=== PATIENT | female | born 1960 | race Caucasian/White ===

== ENCOUNTER → 2016-12-11 | Outpatient (CLI) | payer OTHER ==
[~2016-12-11] MED LIST: COUM2.5T17 PO; MORP15TASA PO; OMEP20CA3 PO; PERC5TAB12 PO; VENL75CA2 PO; [UNRECOGNIZED DRUG - OTHER] PO
[2016-12-11 11:34] LABS: MEAN CORPUSCULAR HEMOGLOBIN 28.3 pg (27.0-33.0); MEAN CORPUSCULAR HGB CONC 32.1 g/dl (32.0-36.5); MEAN CORPUSCULAR VOLUME 88.2 fl (80.0-96.0); PLATELET COUNT, AUTOMATED 400 10^3/uL (150-450); RED CELL DISTRIBUTION WIDTH 13.8 % (11.5-14.5); WHITE BLOOD COUNT 7.8 10^3/uL (4.0-10.0)
[2016-12-11 11:51] LABS: INR 0.77
[2016-12-11 11:57] LABS: ALBUMIN/GLOBULIN RATIO 1.14 (1.00-1.93); ALKALINE PHOSPHATASE 93 U/L (45-117); ALT/SGPT 30 U/L (12-78); ANION GAP 3 MEQ/L (8-16); AST/SGOT 16 U/L (15-37); BILIRUBIN,TOTAL 0.3 MG/DL (0.2-1.0); BLOOD UREA NITROGEN 12 MG/DL (7-18); CALCIUM LEVEL 9.5 MG/DL (8.5-10.1); CARBON DIOXIDE LEVEL 32 MEQ/L (21-32); CHLORIDE LEVEL 107 MEQ/L (98-107); CREATININE FOR GFR 0.83 MG/DL (0.55-1.02); GLOMERULAR FILTRATION RATE > 60.0 (>51); GLUCOSE, FASTING 80 MG/DL (70-105); POTASSIUM SERUM 4.1 MEQ/L (3.5-5.1); SODIUM LEVEL 142 MEQ/L (136-145); TOTAL PROTEIN 7.5 GM/DL (6.4-8.2)
[2016-12-11 13:02] LABS: ERYTHROCYTE SEDIMENTATION RATE 6 mm/hr (0-30)
--- NOTE | 2016-12-11 16:44 | REP ---
PA and lateral chest: Comparison is 10/25/2011. The lung sen are clear. The cardiac size is normal The jacquie, mediastinum, and bony thorax are unremarkable. Impression: Negative PA and lateral chest. There is no interval change. The Signed by Mike Dasilva MD 12/11/2016 12:12 P
--- NOTE | 2016-12-12 20:49 | ECGEPIP ---
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
== END ==
LOC: M ADMPAT 09:55
PROVIDERS: ATTEND Orthopaedic Surgery
DX: Z01.818 Encounter for other preprocedural examination (principal)

== ENCOUNTER → 2017-01-09 | Outpatient (CLI) | payer OTHER ==
[2017-01-09 16:11] LABS: INR 1.69
== END ==
LOC: M LABDRAW1 11:23
PROVIDERS: ATTEND Orthopaedic Surgery
DX: Z79.01 Long term (current) use of anticoagulants (principal)

== ENCOUNTER → 2017-01-14 | Outpatient (REF) | payer OTHER ==
[2017-01-14 15:47] LABS: INR 1.58
== END ==
LOC: M SHH 14:42
PROVIDERS: ATTEND Nurse Practitioner Family
DX: Z79.01 Long term (current) use of anticoagulants (principal)

== ENCOUNTER → 2017-01-25 | Outpatient (REF) | payer OTHER | LOC: M SFHCWAGY 14:50 | PROVIDERS: ATTEND Family Medicine | DX: Z12.4 Encounter for screening for malignant neoplasm of cervix (principal); N95.2 Postmenopausal atrophic vaginitis ==

== ENCOUNTER → 2017-01-25 | Outpatient (CLI) | payer OTHER ==
--- NOTE | 2017-01-25 16:06 | REPMRS ---
Patient History The patient states she has not had a clinical breast exam in over a year. Patient is postmenopausal and has history of other cancer at age 46. No known family history of cancer. Digital Woman Screen Mammo: January 25, 2017 - Exam #: [id number] Bilateral CC and MLO view(s) were taken. Technologist: Nikki Bass Technologist Prior study comparison: December 02, 2013, digital woman screen mammo performed at [facility] to [facility]. June 03, 2012, digital woman screen mammo performed at [facility]. December 27, 2010, bilateral bilat screen digital mammo performed at [facility] to [facility]. FINDINGS: There are scattered fibroglandular densities. There has been no change in the appearance of the mammogram from the prior studies. There is a mild amount of residual fibroglandular tissue which is fairly symmetric. There is no interval development of dominant mass, architectural distortion, or clustered microcalcification suggestive of malignancy. Scattered lymph nodes are seen in the axillae. No significant changes when compared with prior studies. ASSESSMENT: BI-RADS/ACR category 2 mammogram. Benign finding(s). Recommendation Routine screening mammogram in 1 year (for women over age 40). This mammogram was interpreted with the aid of an FDA-approved computer-aided dectection system. A. Negative x-ray reports should not delay biopsy if a dominant or clinically suspicious mass is present. B. Four to eight percent of cancers are not identified by mammography. C. Adenosis and dense breast may obscure an underlying neoplasm. Electronically Signed By: Emanuel Nath MD 01/25/17 0155
== END ==
LOC: M WHC 14:22
PROVIDERS: ATTEND Family Medicine
DX: Z12.31 Encounter for screening mammogram for malignant neoplasm of breast (principal); Z85.9 Personal history of malignant neoplasm, unspecified

== ENCOUNTER 2017-03-11 08:25 | Emergency (ER) | payer OTHER ==
[2017-03-11] MEDS ORDERED: BUPIVACAINE HCL 0.5% 10 ML VIAL As Ordered (10:03)
== END 2017-03-11 10:42 | disposition home or self-care (01) ==
LOC: M ED 08:25
DX: M50.10 Cervical disc disorder with radiculopathy, unspecified cervical region (principal); M79.622 Pain in left upper arm; R20.2 Paresthesia of skin; Z96.652 Presence of left artificial knee joint; Z87.891 Personal history of nicotine dependence; Z85.21 Personal history of malignant neoplasm of larynx
CPT/HCPCS: 99283

== ENCOUNTER → 2017-07-02 | Outpatient (CLI) | payer OTHER ==
[2017-07-02 17:23] LABS: ALBUMIN 3.8 GM/DL (3.2-5.2); ALBUMIN/GLOBULIN RATIO 1.15 (1.00-1.93); ALKALINE PHOSPHATASE 106 U/L (45-117); ALT/SGPT 31 U/L (12-78); ANION GAP 7 MEQ/L (8-16); AST/SGOT 19 U/L (7-37); BILIRUBIN,TOTAL 0.3 MG/DL (0.2-1.0); BLOOD UREA NITROGEN 17 MG/DL (7-18); CALCIUM LEVEL 8.9 MG/DL (8.5-10.1); CARBON DIOXIDE LEVEL 25 MEQ/L (21-32); CHLORIDE LEVEL 109 MEQ/L (98-107); CHOLESTEROL LEVEL 247 MG/DL (<200); GLOMERULAR FILTRATION RATE > 60.0 (>51); GLUCOSE, FASTING 103 MG/DL (70-100); HDL CHOLESTEROL 63 MG/DL (>40); LDL CHOLESTEROL 145.8 MG/DL (<100); NON-HDL-C 184 MG/DL; POTASSIUM SERUM 4.5 MEQ/L (3.5-5.1); SODIUM LEVEL 141 MEQ/L (136-145); TOTAL PROTEIN 7.1 GM/DL (6.4-8.2); TRIGLYCERIDES LEVEL 191 MG/DL (<150)
== END ==
LOC: M LRY 13:54
DX: E78.5 Hyperlipidemia, unspecified (principal)
CPT/HCPCS: 80053

== ENCOUNTER → 2017-10-04 | Outpatient (CLI) | payer OTHER | LOC: M RAD 07:25 | DX: E04.2 Nontoxic multinodular goiter (principal) | CPT/HCPCS: 76536 ==

== ENCOUNTER 2018-03-20 10:05 | Day surgery (SDC) | payer OTHER ==
[~2018-03-20] VITALS: Ht 162.6 cm; Wt 71.7 kg
[~2018-03-20 10:05] MED LIST changes: +LIDOCAINE 2% INJ 100 MG/5 ML SDV (FOR ANES.) As Ordered ONE; +MIDAZOLAM INJ 2 MG/2 ML VIAL (J2250) As Ordered ONE; +ONDANSETRON 4MG/2ML VIAL (J2405) As Ordered ONE; +PROPOFOL 200 MG/20 ML VIAL As Ordered ONE; +ROCURONIUM BROMIDE 50 MG/5 ML VIAL As Ordered ONE; +dexameTHASONE 4 MG/ML 1ML VIAL (J1100) As Ordered ONE; +fentaNYL 250 MCG/5 ML INJECTION (J3010) As Ordered ONE
[2018-03-20] MEDS ORDERED: LR 1,000 ML IV ONE (10:15)
[2018-03-20] MEDS ORDERED: METHYLENE BLUE 0.5% (5MG/ML) 10 ML AMP (PROVAYBLUE)(Q9968 PER 1MG) As Ordered ONE (11:43)
[2018-03-20] MEDS ORDERED: LIDOCAINE W/EPINEPHRINE 1% 20ML VIAL As Ordered ONE (11:43)
[2018-03-20] MEDS ORDERED: OXYMETAZOLINE NASAL SPRAY (AFRIN) As Ordered ONE (11:43)
[2018-03-20] MEDS ORDERED: LABETALOL HCL 100 MG/20 ML VIAL As Ordered ONE (12:16)
[2018-03-20] MEDS ORDERED: SUGAMMADEX SODIUM 500 MG/5 ML VIAL (BRIDION) As Ordered ONE (12:24)
[2018-03-20] MEDS ORDERED: KETOROLAC 60 MG/2 ML VIAL (J1885) As Ordered ONE (12:35)
[2018-03-20] MEDS ORDERED: LR 1,000 ML IV SCH ×2 (13:30)
[2018-03-20] MEDS ORDERED: ONDANSETRON 4MG/2ML VIAL (J2405) IV PRN (13:30)
[2018-03-20] MEDS ORDERED: fentaNYL 100 MCG/2 ML INJECTION (J3010) IV PRN (13:30)
[2018-03-20] MEDS ORDERED: GLYCOPYRROLATE INJ 0.2 MG/ML 2 ML VIAL As Ordered ONE (14:06)
[2018-03-20 14:40] VITALS: BP 113/70
--- NOTE | 2018-03-21 00:42 | ECGEPIP ---
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
--- NOTE | 2018-03-24 15:12 | RO ---
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 PROCEDURE PERFORMED: Direct suspension microlaryngoscopy with biopsy of the right and the left vocal cords. SURGEON: Mauricio Wright MD MACHINING DEPARTMENT SUPERVISOR: ANESTHESIA: General. CLINICAL PREAMBLE: This 57-year-old woman presented to the office with a history of carcinoma in situ. She was treated with CO2 laser ablation. She has noticed some throat discomfort. 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 Management options including the surgery listed above have been discussed. The patient understood and consented to the procedure. DESCRIPTION OF PROCEDURE: The patient was identified in preoperative holding and brought to the operating room in stable condition. She was laid in supine position on the operating table. The patient received general anesthesia followed by orotracheal tube intubation without incident. The patient was prepped and draped in the usual fashion for the procedure. The upper dentition was protected using the teeth guard. Manual palpation of the oral cavity, oral tongue, base of tongue, lateral and posterior oropharyngeal calvert showed no evidence of discreet mass-lesion. The Dedo-Pilling laryngoscope was used to visualize the mucosa of the oral cavity, oropharynx, hypopharynx, supraglottis, and the posterior pharyngeal wall. No mucosal lesions were noted. The Dedo-Pilling laryngoscope was suspended on the Petty stand to allow visualization of the glottis. The right vocal cord had polypoid tissue over the mid portion of the right vocal cord. Biopsy was performed. Leukoplakia was noted over the mid third of the left vocal cord. This was then biopsied as well. Hemostasis was achieved by placing cotton pledgets soaked in Afrin solution. At the end of the procedure, sponge and instrument counts were correct. No complications were encountered. Estimated blood loss less than 1 mL. General anesthesia was reversed and the patient was extubated and brought to the recovery room in stable condition.
== END 2018-03-20 14:40 | disposition home or self-care (01) ==
LOC: M SDC 10:05
PROVIDERS: ATTEND Otolaryngology
DX: R49.0 Dysphonia (principal); Z85.21 Personal history of malignant neoplasm of larynx; K13.21 Leukoplakia of oral mucosa, including tongue; J38.3 Other diseases of vocal cords; K21.9 Gastro-esophageal reflux disease without esophagitis; M12.9 Arthropathy, unspecified; F41.9 Anxiety disorder, unspecified; F32.9 Major depressive disorder, single episode, unspecified; Z79.899 Other long term (current) drug therapy; Z87.891 Personal history of nicotine dependence; Z78.0 Asymptomatic menopausal state; Z96.652 Presence of left artificial knee joint
CPT/HCPCS: 31535; 88305; 93005; J1100; J1885; J2250; J2405; J3010; Q9968

== ENCOUNTER → 2018-12-26 | Outpatient (CLI) | payer OTHER ==
[~2018-12-26] MED LIST changes: -LIDOCAINE 2% INJ 100 MG/5 ML SDV (FOR ANES.) As Ordered ONE; -MIDAZOLAM INJ 2 MG/2 ML VIAL (J2250) As Ordered ONE; -OMEP20CA3 PO; +OMEP20CA4 PO; -ONDANSETRON 4MG/2ML VIAL (J2405) As Ordered ONE; -PROPOFOL 200 MG/20 ML VIAL As Ordered ONE; -ROCURONIUM BROMIDE 50 MG/5 ML VIAL As Ordered ONE; -dexameTHASONE 4 MG/ML 1ML VIAL (J1100) As Ordered ONE; -fentaNYL 250 MCG/5 ML INJECTION (J3010) As Ordered ONE
[2018-12-26 13:12] LABS: ALT/SGPT 33 U/L (12-78); BILIRUBIN,TOTAL 0.4 MG/DL (0.2-1.0); BLOOD UREA NITROGEN 15 MG/DL (7-18); CALCIUM LEVEL 9.1 MG/DL (8.8-10.2); CARBON DIOXIDE LEVEL 30 MEQ/L (21-32); CHLORIDE LEVEL 106 MEQ/L (98-107); CHOLESTEROL LEVEL 253 MG/DL (<200); CHOLESTEROL RISK RATIO 3.513 (<5); CREATININE FOR GFR 0.81 MG/DL (0.55-1.30); GLOMERULAR FILTRATION RATE > 60.0 (>45); GLUCOSE, FASTING 99 MG/DL (70-100); HDL CHOLESTEROL 72 MG/DL (>40); LDL CHOLESTEROL 164 MG/DL (<100); NON-HDL-C 181 MG/DL; POTASSIUM SERUM 4.5 MEQ/L (3.5-5.1); SODIUM LEVEL 141 MEQ/L (136-145); TOTAL PROTEIN 6.8 GM/DL (6.4-8.2); TRIGLYCERIDES LEVEL 85 MG/DL (<150)
[2018-12-26 13:13] LABS: ALBUMIN 3.6 GM/DL (3.2-5.2)
== END ==
LOC: M WUC 10:27
PROVIDERS: ATTEND Internal Medicine
DX: E78.5 Hyperlipidemia, unspecified (principal); R73.01 Impaired fasting glucose

== ENCOUNTER → 2019-03-13 | Outpatient (REF) | payer OTHER ==
[~2019-03-13] MED LIST changes: +OMEP1CAP73 PO; -OMEP20CA4 PO
== END ==
LOC: M PLALAB 13:28
PROVIDERS: ATTEND Family Medicine
DX: Z12.4 Encounter for screening for malignant neoplasm of cervix (principal); N95.8 Other specified menopausal and perimenopausal disorders

== ENCOUNTER → 2019-03-13 | Outpatient (CLI) | payer OTHER ==
--- NOTE | 2019-03-13 16:04 | REPMRS ---
Patient History The patient states she has not had a clinical breast exam in over a year. No known family history of cancer. Digital Woman Screen Mammo: March 13, 2019 - Exam #: [id number] Bilateral CC and MLO view(s) were taken. Technologist: Sue Calhoun, Technologist Prior study comparison: January 25, 2017, digital woman screen mammo performed at [facility]. December 02, 2013, digital woman screen mammo performed at [facility]. June 03, 2012, digital woman screen mammo performed at [facility]. FINDINGS: There are scattered fibroglandular densities. There has been no change in the appearance of the mammogram from the prior studies. There is a mild amount of scattered fibroglandular density which is fairly symmetric. There is no interval development of dominant mass, architectural distortion, or grouped microcalcification suggestive of malignancy. 3-D tomosynthesis shows no additional findings. Assessment: BI-RADS/ACR category 1 mammogram. Negative Mammogram. Recommendation Routine screening mammogram of both breasts in 1 year (for women over age 40). This patient's Lifetime Breast Cancer Risk is estimated at 9.4 %. This mammogram was interpreted with the aid of an FDA-approved computer-aided dectection system. Electronically Signed By: Siddhartha Villafuerte MD 03/13/19 9388
== END ==
LOC: M WHC 13:01
PROVIDERS: ATTEND Family Medicine
DX: Z12.31 Encounter for screening mammogram for malignant neoplasm of breast (principal)

== ENCOUNTER → 2019-07-07 | Outpatient (REF) | payer OTHER | LOC: M LAB REF 08:59 | PROVIDERS: ATTEND Surgery | DX: L72.3 Sebaceous cyst (principal) ==

== ENCOUNTER → 2020-05-16 | Outpatient (CLI) | payer OTHER ==
--- NOTE | 2020-05-16 17:15 | REPMRS ---
Patient History The patient states she had a clinical breast exam in April 2020. No known family history of cancer. Digital Woman Screen Mammo: May 16, 2020 - Exam #: [id number] Bilateral CC and MLO view(s) were taken. Technologist: RT Katia Prior study comparison: March 13, 2019, bilateral digital woman screen mammo performed at [facility]. January 25, 2017, digital woman screen mammo performed at [facility]. December 02, 2013, digital woman screen mammo performed at [facility]. FINDINGS: The breast tissue is almost entirely fat. The Volpara volumetric breast density category is: A. There has been no change in the appearance of the mammogram from the prior studies. There is no interval development of dominant mass, architectural distortion, or grouped microcalcification typical of malignancy. 3-D tomosynthesis shows no additional findings. Assessment: BI-RADS/ACR category 1 mammogram. Negative Mammogram. Recommendation Routine screening mammogram of both breasts in 1 year (for women over age 40). This patient's [facility] Lifetime Breast Cancer RIsk is estimated at 8.8 %. This mammogram was interpreted with the aid of an FDA-approved computer-aided dectection system. Electronically Signed By: Siddhartha Villafuerte MD 05/16/20 4489
== END ==
LOC: M WHC 13:13
PROVIDERS: ATTEND Nurse Practitioner Women's Health
DX: Z12.31 Encounter for screening mammogram for malignant neoplasm of breast (principal)

== ENCOUNTER → 2020-05-16 | Outpatient (REF) | payer OTHER | LOC: M SFHCWAGY 17:09 | PROVIDERS: ATTEND Nurse Practitioner Women's Health | DX: Z12.4 Encounter for screening for malignant neoplasm of cervix (principal) ==

== ENCOUNTER → 2020-12-26 | Outpatient (CLI) | payer OTHER | LOC: M LABSMTC 09:04 | PROVIDERS: ATTEND Anesthesiology | DX: Z01.812 Encounter for preprocedural laboratory examination (principal); Z20.822 Contact with and (suspected) exposure to COVID-19 ==

== ENCOUNTER 2020-12-30 10:03 | Day surgery (SDC) | payer OTHER ==
--- OUTSIDE RECORDS SUMMARY | 2020-12-26 09:08 | CCD | Continuity of Care Document ---
Author Author Whitney COYLE MD Organization Unknown Address [address] [place] [address] [address] [place] [address] Phone [phone] Care Team Providers Care Career Development Consultant Name Role Phone Eric Amaya D.O. AUTM [phone] Beto Dean M.D. AUTM [phone] Problems Active Problems Provider Date Malignant tumor of glottis Alli Mccormack MD Onset: 04/2012 Difficulty speaking Alli Mccormack MD Onset: 05/21/2012 Screening for malignant neoplasm of colon Charlie Carr MD Onset: 12/01/2013 Disorder of the larynx Alli Mccormack MD Onset: 12/02/19 14 Neoplasm of uncertain behavior of skin Alli Mccormack MD Onset: 12/01/2013 Gastroesophageal reflux disease Pat L Anju DO Onset: 1 Malignant tumor of larynx Pat L Anju DO Onset: 014 Scar conditions and fibrosis of skin Pat L Anju MONTESINOS Ons et: 12/01/2013 Neoplasm of uncertain behavior of larynx Pat L Anju DO Onset: 12/01/2013 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 Pat L Pa matthew DO Onset: 12/01/2013 Benign neoplasm of tongue Pat L Anju DO Onset: 014 Neoplasm of uncertain behavior of lip, oral cavity and phary nx Pat L Anju DO Onset: 12/01/2013 Polyp of vocal cord or larynx Mauricio Wright MD Onset: 08/2018 Non-toxic multinodular goiter Mauricio Wright MD Onset: 08/2018 Social History Type Date Description Comments Sex Unknown ETOH Use Sociable Tobacco Use Start: Unknown End: Unknown Patient is a former smoker Recreational Drug Use Formerly used Marijuana sp oradically Tobacco Use Start: Unknown Quit 2009 Allergies, Adverse Reactions, Alerts Description No Known Drug Allergies Medications Active Medications SIG Qnty Indications Ordering Provide r Date Omeprazole 40mg Capsules DR bryn casillas needed Unknown Venlafaxine HCL 75mg Tablets 1 by mouth every day Unknown History Medications Magnesium Citrate 1.745GM/30ML Flor ution one 10 oz bottle green or clear only, use for additional prep at 2-3 days before procedure 296ml R19.4 Charlie Carr MD 07/11/2020 - Miralax 17GM/Scoop Powder use as directed see dr carr colon preparation instructions 238gm R19.4 Los ravi Carr MD 07/11/2020 - 10/04/2020 Immunizations Description No Information Available Vital Signs Date Vital Result Comment 10/04/2020 10:30am BP Systolic 123 mmHg BP Diastolic 79 mmHg Body Temperature 98.1 F Height 64 inches 5'4" Weight 158.12 lb BMI (Body Mass Index) 27.1 kg/m2 [place] Body Weight 120 lb Weight 71.725 kg BSA (Body Surface Area) 1.77 m2 07/11/2020 9:49am BP Systolic 133 mmHg BP Diastolic 80 mmHg Height 64 inches 5'4" Weight 160.00 lb BMI (Body Mass Index) 27.5 kg/m2 [place] Body Weight 120 lb Weight 72.576 kg BSA (Body Surface Area) 1.78 m2 Results Description No Information Available Procedures Date Code Description Status 07/11/2020 15954 Office/Outpatient New Moderate M DM 45-59 Minutes Completed Medical Devices Description No Information Available Encounters Type Date Location Provider Dx Diagnosis Office Visit 07/11/2020 9:30a [facility] Charlie Carr MD R19.4 Change in bowel habit R94.5 Abnormal results of liver fu nction studies Assessments Date Code Description Provider 07/11/2020 R19.4 Change in bowel habit Charlie henriquez MD 07/11/2020 R94.5 Abnormal results of liver functi on studies Charlie Carr MD Plan of Treatment Future Appointment(s):* 10/07/2020 3:30 pm - Mauricio Wright MD at [facility] E[facility] * 12/30/2020 7:30 am - Charlie Carr MD at [facility] Functional Status Description No Information Available Mental Status Description No Information Available Referrals Refer to Reason for Referral Status Appt Date [facility] History of gallstone/sludge pancreatitis Created [phone] Charlie Carr M.D. z12.11- colo screening Scheduled 06/19 [facility], Gastroenterology [address] [facility], [address] [place] [address] [phone]
--- OUTSIDE RECORDS SUMMARY | 2020-12-26 09:08 | CCD | Continuity of Care Document ---
Author Author Whitney JIMÉNEZ MD Organization Unknown Address [address] [place] [address] [address] [place] [address] Phone [phone] Care Team Providers Care Sample Prep Technician Name Role Phone Eric Amaya D.O. AUTM [phone] Beto Dean M.D. AUTM [phone] Problems Active Problems Provider Date Malignant tumor [...] oradically Tobacco Use Start: Unknown Quit 2009 Allergies and adverse reactions Description No Known Drug Allergies Medications Active [...] lb BMI (Body Mass Index) 27.1 kg/m2 [place] Body Weight 120 lb Weight 71.725 kg BSA (Body Surface Area) 1.77 m2 07/11/2020 9:49am BP Systolic 133 mmHg BP Diastolic 80 mmHg Height 64 inches 5'4" Weight 160.00 lb BMI (Body Mass Index) 27.5 kg/m2 [place] Body Weight 120 lb Weight 72.576 kg BSA (Body Surface Area) 1.78 m2 Results Description No Information Available Procedures Date Code Description Status 10/04/2020 46978 Office/Outpatient Established Lo w MDM 20-29 Min Completed 07/11/2020 65947 Office/Outpatient New Moderate M DM 45-59 Minutes Completed Medical Devices Description No Information Available Encounters Type Date Location Provider Dx Diagnosis Office Visit 10/04/2020 10:15a [facility] Edu daniel Jiménez MD R14.0 Abdominal distension (gaseou s) K80.20 Calculus of gallbladder w/o cholecystitis w/o obstruction K59.00 Constipation, unspecified Office Visit 07/11/2020 9:30a [facility] Gastroenterology Pra ct[facility] Charlie Carr MD R19.4 Change in bowel habit R94.5 Abnormal results of liver fu nction studies Assessments Date Code Description Provider 10/04/2020 R14.0 Abdominal bloating Narendra B Bar ayuga, MD 10/04/2020 K80.20 Cholelithiasis without obstructi on Narendra Jiménez MD 10/04/2020 K59.00 Constipation Narendra toro MD 07/11/2020 R19.4 Change in bowel habit Charlie henriquez MD 07/11/2020 R94.5 Abnormal results of liver functi on studies Charlie Carr MD Plan of Treatment Future Appointment(s):* 12/30/2020 7:30 am - Charlie Carr MD at [facility] Gastroenterology Practice 10/04/2020 - Narendra Jiménez MD* R14.0 Abdominal bloating * K80.20 Cholelithiasis without obstruction* Comments:* Patient with evidence of sludge may be a 4 mm polyp or choleliths but does not necessarily have any symptoms related to her gallstones. She had some mildly elevated amylase and lipase which are not in the range of pancreatitis and she does not have any biliary colic type discomfort. She does have prominent symptoms of bloating which is commonly correlated with the presence of gallstones but not exactly causative and I do not expect her symptoms of bloating to improve with c holecystectomy. She has pending work-up with gastroenterology including a colonoscopy and I told her to go through with this and possibly even continue to try to modify her diet to help her with the bloating and the constipation specially increase fiber in the foods that she eats and drink lots of liquids to help her with the sensation of constipation and bloating.Follow-up as needed. * K59.00 Constipation Functional Status Description No Information Available Mental Status Description No Information Available Referrals Refer to Reason for Referral Status Appt Date Mauricio Wright MD POLYP OF VOCAL CORD AND LARYNX Sched uled 02/25/2014 [address] [facility] [address] [place] [address] [phone] [facility] Surgery Practice History of gallstone/sludge pancreatitis Closed [phone] Charlie Carr M.D. z12.11- colo screening Scheduled 06/19 [facility], Gastroenterology [address] [place] [address] [address] [place] [id number] [phone]
--- OUTSIDE RECORDS SUMMARY | 2020-12-26 09:09 | CCD ---
Author Author [facility] Organization [facility] Address Unknown Phone Unavailable Care Team Providers Care Inspector Glass Or Mirror Name Role Phone JEISON CROWDER MD Unavailable Unavailable REINDL, JEISON CALVO Unavailable Unavailable REINDL, JEISON CALVO Unavailable Unavailable REINDL, JEISON CALVO Unavailable Unavailable REINDL, JEISON CALVO Unavailable Unavailable REINDL, JEISON CALVO Unavailable Unavailable REINDL, JEISON CALVO Unavailable Unavailable REINDL, JEISON CALVO Unavailable Unavailable REINDL, JEISON CALVO Unavailable Unavailable REINDL, JEISON CALVO Unavailable Unavailable REINDL, JEISON CALVO Unavailable Unavailable REINAUGUSTINE, JEISON CALVO Unavailable Unavailable REINAUGUSTINE, JEISON CALVO Unavailable Unavailable REINDL, JEISON CALVO Unavailable Unavailable REINAUGUSTINE, JEISON CALVO Unavailable Unavailable REINDL, JEISON CALVO Unavailable Unavailable REINDL, JEISON CALVO Unavailable Unavailable REINAUGUSTINE, JEISON CALVO Unavailable Unavailable REINDL, JEISON CALVO Unavailable Unavailable REINDL, JEISON CALVO Unavailable Unavailable REINDL, JEISON CALVO Unavailable Unavailable REINDL, JEISON CALVO Unavailable Unavailable REINDL, JEISON CALVO Unavailable Unavailable REINDL, JEISON CALVO Unavailable Unavailable REINDL, JEISON CALVO Unavailable Unavailable REINDL, JEISON CALVO Unavailable Unavailable REINDL, JEISON CALVO Unavailable Unavailable REINDL, JEISON CALVO Unavailable Unavailable REINDL, JEISON CALVO Unavailable Unavailable REINAUGUSTINE, JEISON CALVO Unavailable Unavailable REINAUGUSTINE, JEISON CALVO Unavailable Unavailable REINAUGUSTINE, JEISON CALVO Unavailable Unavailable REINDL, JEISON CALVO Unavailable Unavailable REINAUGUSTINE, JEISON CALVO Unavailable Unavailable ANNMARIE, JEISON CALVO Unavailable Unavailable ANNMARIE, JEISON CALVO Unavailable Unavailable ANNMARIE, JEISON CALVO Unavailable Unavailable ANNMARIE, JEISON CALVO Unavailable Unavailable REINAUGUSTINE, JEISON CALVO Unavailable Unavailable REINAUGUSTINE, JEISON CALVO Unavailable Unavailable REINDL, JEISON CALVO Unavailable Unavailable REINDL, JEISON CALVO Unavailable Unavailable BARAYUGA, B VINAYAK MD Unavailable Unavailable BARAYUGAJessika MD Unavailable Unavailable BARAYUGAJessika MD Unavailable Unavailable BARAYUGAJessika MD Unavailable Unavailable BARAYUGAJessika MD Unavailable Unavailable BARAYUGAJessika MD Unavailable Unavailable BARAYUGAJessika MD Unavailable Unavailable BARJOSEPHUGAJessika MD Unavailable Unavailable BARAYUGAJessika MD Unavailable Unavailable BARJOSEPHUGAJessika MD Unavailable Unavailable BARAYUGAJessika MD Unavailable Unavailable BARAYUGAJessika MD Unavailable Unavailable BARAYUGAJessika MD Unavailable Unavailable BARAYUGAJessika MD Unavailable Unavailable BARAYUGA, Jessika LICEA MD Unavailable Unavailable BARAYUGA, Jessika LICEA MD Unavailable Unavailable BARAYUGAJessika MD Unavailable Unavailable BARJOSEPHUGAJessika MD Unavailable Unavailable BARJOSEPHUGAJessika MD Unavailable Unavailable BARJOSEPHUGAJessika MD Unavailable Unavailable BARJOSEPHUGAJessika MD Unavailable Unavailable BARAYUGAJessika MD Unavailable Unavailable BARAYUGAJessika MD Unavailable Unavailable BARAYUGAJessika MD Unavailable Unavailable BARAYUGAJessika MD Unavailable Unavailable BARJOSEPHUGAJessika MD Unavailable Unavailable BARAYUGAJessika MD Unavailable Unavailable BARAYUGAJessika MD Unavailable Unavailable BARJOSEPHUGAJessika MD Unavailable Unavailable GERAUGAJessika MD Unavailable Unavailable BARAYUGAJessika MD Unavailable Unavailable GERAUGAJessika MD Unavailable Unavailable BARAYUGAJessika MD Unavailable Unavailable BARAYUGAJessika MD Unavailable Unavailable BARAYUGAJessika MD Unavailable Unavailable LETTIERE, A PURVI PA Unavailable Unavailable LETTIERE, A PURVI PA Unavailable Unavailable LETTIERE, A PURVI PA Unavailable Unavailable LETTIERE, A PURVI PA Unavailable Unavailable LETTIERE, A PURVI PA Unavailable Unavailable LETTIERE, A PURVI PA Unavailable Unavailable LETTIERE, A PURVI PA Unavailable Unavailable LETTIERE, A PURVI PA Unavailable Unavailable LETTIERE, A PURVI PA Unavailable Unavailable LETTIERE, A PURVI PA Unavailable Unavailable LETTIERE, A PURVI PA Unavailable Unavailable LETTIERE, A PURVI PA Unavailable Unavailable LETTIERE, A PURVI PA Unavailable Unavailable LETTIERE, A PURVI PA Unavailable Unavailable LETTIERE, A PURVI PA Unavailable Unavailable LETTIERE, A PURVI PA Unavailable Unavailable LETTIERE, A PURVI PA Unavailable Unavailable LETTIERE, A PURVI PA Unavailable Unavailable LETTIERE, A PURVI PA Unavailable Unavailable LETTIERE, A PURVI PA Unavailable Unavailable LETTIERE, A PURVI PA Unavailable Unavailable LETTIERE, A PURVI PA Unavailable Unavailable LETTIERE, A PURVI PA Unavailable Unavailable LETTIERE, A PURVI PA Unavailable Unavailable LETTIERE, A PURVI PA Unavailable Unavailable LETTIERE, A PURVI PA Unavailable Unavailable LETTIERE, A PURVI PA Unavailable Unavailable LETTIERE, A PURVI PA Unavailable Unavailable LETTIERE, A PURVI PA Unavailable Unavailable LETTIERE, A PURVI PA Unavailable Unavailable LETTIERE, A PURVI PA Unavailable Unavailable Linda ARREDONDO MD Unavailable Unavailable Linda ARREDONDO MD Unavailable Unavailable Linda ARREDONDO MD Unavailable Unavailable Linda ARREDONDO MD Unavailable Unavailable Linda ARREDONDO MD Unavailable Unavailable Linda ARREDONDO MD Unavailable Unavailable Linda ARREDONDO MD Unavailable Unavailable Linda ARREDONDO MD Unavailable Unavailable Linda ARREDONDO MD Unavailable Unavailable Linda ARREDONDO MD Unavailable Unavailable Linda ARREDONDO MD Unavailable Unavailable Linda ARREDONDO MD Unavailable Unavailable Linda ARREDONDO MD Unavailable Unavailable Linda ARREDONDO MD Unavailable Unavailable Linda ARREDONDO MD Unavailable Unavailable Linda ARREDONDO MD Unavailable Unavailable Linda ARREDONDO MD Unavailable Unavailable Linda ARREDONDO MD Unavailable Unavailable Linda ARREDONDO MD Unavailable Unavailable Linda ARREDONDO MD Unavailable Unavailable Linda ARREDONDO MD Unavailable Unavailable Linda ARREDONDO MD Unavailable Unavailable Linda ARREDONDO MD Unavailable Unavailable Linda ARREDONDO MD Unavailable Unavailable Linda ARREDONDO MD Unavailable Unavailable Linda ARREDONDO MD Unavailable Unavailable Linda ARREDONDO MD Unavailable Unavailable Linda ARREDONDO MD Unavailable Unavailable Linda ARREDONDO MD Unavailable Unavailable Linda ARREDONDO MD Unavailable Unavailable Linda ARREDONDO MD Unavailable Unavailable Linda ARREDONDO MD Unavailable Unavailable Linda ARREDONDO MD Unavailable Unavailable Linda ARREDONDO MD Unavailable Unavailable Linda ARREDONDO MD Unavailable Unavailable Linda ARREDONDO MD Unavailable Unavailable Linda ARREDONDO MD Unavailable Unavailable Linda ARREDONDO MD Unavailable Unavailable Linda ARREDONDO MD Unavailable Unavailable Linda ARREDONDO MD Unavailable Unavailable Linda ARREDONDO MD Unavailable Unavailable Linda ARREDONDO MD Unavailable Unavailable Linda ARREDONDO MD Unavailable Unavailable Linda ARREDONDO MD Unavailable Unavailable Linda ARREDONDO MD Unavailable Unavailable Linda ARREDONDO MD Unavailable Unavailable Linda ARREDONDO MD Unavailable Unavailable Linda ARREDONDO MD Unavailable Unavailable Linda ARREDONDO MD Unavailable Unavailable Linda ARREDONDO MD Unavailable Unavailable MARIA ELENA H ABIODUN CALVO Unavailable Unavailable MARIA ELENA H ABIODUN CALVO Unavailable Unavailable MARIA ELENA H ABIODUN CALVO Unavailable Unavailable Linda ARREDONDO MD Unavailable Unavailable Linda ARREDONDO MD Unavailable Unavailable Linda ARREDONDO MD Unavailable Unavailable MARIA ELENA H ABIODUN CALVO Unavailable Unavailable MARIA ELENA H ABIODUN CALVO Unavailable Unavailable MARIA ELENA H ABIODUN CALVO Unavailable Unavailable MARIA ELENA H ABIODUN CALVO Unavailable Unavailable MARIA ELENA H ABIODUN CALVO Unavailable Unavailable MARIA ELENA H ABIODUN CALVO Unavailable Unavailable MARIA ELENA H ABIODUN CALVO Unavailable Unavailable MARIA ELENA H ABIODUN CALVO Unavailable Unavailable MARIA ELENA H ABIODUN CALVO Unavailable Unavailable MARIA ELENA H ABIODUN CALVO Unavailable Unavailable MARIA ELENA H ABIODUN CALVO Unavailable Unavailable MARIA ELENA H ABIODUN CALVO Unavailable Unavailable MARIA ELENA H ABIODUN CALVO Unavailable Unavailable MARIA ELENA H ABIODUN CALVO Unavailable Unavailable MARIA ELENA H ABIODUN CALVO Unavailable Unavailable Linda ARREDONDO MD Unavailable Unavailable Linda ARREDONDO MD Unavailable Unavailable Linda ARREDONDO MD Unavailable Unavailable Linda ARREDONDO MD Unavailable Unavailable Linda ARREDONDO MD Unavailable Unavailable Linda ARREDONDO MD Unavailable Unavailable Linda ARREDONDO MD Unavailable Unavailable Linda ARREDONDO MD Unavailable Unavailable Linda ARREDONDO MD Unavailable Unavailable Linda ARREDONDO MD Unavailable Unavailable Linda ARREDONDO MD Unavailable Unavailable Linda ARREDONDO MD Unavailable Unavailable Linda ARREDONDO MD Unavailable Unavailable Linda ARREDONDO MD Unavailable Unavailable Linda ARREDONDO MD Unavailable Unavailable Linda ARREDONDO MD Unavailable Unavailable Linda ARREDONDO MD Unavailable Unavailable Linda ARREDONDO MD Unavailable Unavailable Linda ARREDONDO MD Unavailable Unavailable Linda ARREDONDO MD Unavailable Unavailable Linda ARREDONDO MD Unavailable Unavailable Linda ARREDONDO MD Unavailable Unavailable Linda ARREDONDO MD Unavailable Unavailable Linda ARREDONDO MD Unavailable Unavailable Linda ARREDONDO MD Unavailable Unavailable Linda ARREDONDO MD Unavailable Unavailable Linda ARREDONDO MD Unavailable Unavailable Linda ARREDONDO MD Unavailable Unavailable Linda ARREDONDO MD Unavailable Unavailable Linda ARREDONDO MD Unavailable Unavailable Linda ARREDONDO MD Unavailable Unavailable Linda ARREDONDO MD Unavailable Unavailable Linda ARREDONDO MD Unavailable Unavailable Linda ARREDONDO MD Unavailable Unavailable Linda ARREDONDO MD Unavailable Unavailable Linda ARREDONDO MD Unavailable Unavailable Linda ARREDONDO MD Unavailable Unavailable Linda ARREDONDO MD Unavailable Unavailable Linda ARREDONDO MD Unavailable Unavailable Linda RAREDONDO MD Unavailable Unavailable Linda ARREDONDO MD Unavailable Unavailable Linda ARREDONDO MD Unavailable Unavailable Linda ARREDONDO MD Unavailable Unavailable Linda ARREDONDO MD Unavailable Unavailable Linda ARREDONDO MD Unavailable Unavailable Linda ARREDONDO MD Unavailable Unavailable Linda ARREDONDO MD Unavailable Unavailable MARIA ELENA, H ABIODUN MD Unavailable Unavailable MARIA ELENA, H ABIODUN MD Unavailable Unavailable MARIA ELENA, H ABIODUN MD Unavailable Unavailable MARIA ELENA, H ABIODUN MD Unavailable Unavailable MARIA ELENA, H ABIODUN MD Unavailable Unavailable MARIA ELENA, H ABIODUN MD Unavailable Unavailable MARIA ELENA, H ABIODUN MD Unavailable Unavailable MARIA ELENA, H ABIODUN MD Unavailable Unavailable MARIA ELENA, H ABIODUN MD Unavailable Unavailable MARIA ELENA, H ABIODUN MD Unavailable Unavailable MARIA ELENA, H ABIODUN MD Unavailable Unavailable MARIA ELENA, H ABIODUN MD Unavailable Unavailable MARIA ELENA, H ABIODUN MD Unavailable Unavailable MARIA ELENA, H ABIODUN MD Unavailable Unavailable MARIA ELENA, H ABIODUN MD Unavailable Unavailable MARIA ELENA, H ABIODUN MD Unavailable Unavailable MARIA ELENA, H ABIODUN MD Unavailable Unavailable MAIRA ELENA, H ABIODUN MD Unavailable Unavailable MARIA ELENA, H ABIODUN MD Unavailable Unavailable MARIA ELENA, H ABIODUN MD Unavailable Unavailable MARIA ELENA, H ABIODUN MD Unavailable Unavailable MARIA ELENA, H ABIODUN MD Unavailable Unavailable MARIA ELENA, H ABIODUN MD Unavailable Unavailable MARIA ELENA, H ABIODUN MD Unavailable Unavailable MARIA ELENA, H ABIODUN MD Unavailable Unavailable MARIA ELENA, H ABIODUN MD Unavailable Unavailable MARIA ELENA, H ABIODUN MD Unavailable Unavailable MARIA ELENA, H ABIODUN MD Unavailable Unavailable MARIA ELENA, H ABIODUN MD Unavailable Unavailable MARIA ELENA, H ABIODUN MD Unavailable Unavailable MARIA ELENA, H ABIODUN MD Unavailable Unavailable MARIA ELENA, H ABIODUN MD Unavailable Unavailable MARIA ELENA, H ABIODUN MD Unavailable Unavailable MARIA ELENA, H ABIODUN MD Unavailable Unavailable Re-disclosure Warning The records that you are about to access may contain information from federally-assisted alcohol or drug abuse programs. If such information is present, then the following federally mandated warning applies: This information has been disclosed to you from records protected by federal confidentiality rules (42 CFR part 2). The federal rules prohibit you from making any further disclosure of this information unless further disclosure is expressly permitted by the written consent of the person to whom it pertains or as otherwise permitted by 42 CFR part 2. A general authorization for the release of medical or other information is NOT sufficient for this purpose. The Federal rules restrict any use of the information to criminally investigate or prosecute any alcohol or drug abuse patient.The records that you are about to access may contain highly sensitive health information, the redisclosure of which is protected by Article 27-F of the [facility] Public Health law. If you continue you may have access to information: Regarding HIV / AIDS; Provided by facilities licensed or operated by the [facility] Office of Mental Health; or Provided by the [facility] Office for People With Developmental Disabilities. If such information is present, then the following [facility] mandated warning applies: This information has been disclosed to you from confidential records which are protected by state law. State law prohibits you from making any further disclosure of this information without the specific written consent of the person to whom it pertains, or as otherwise permitted by law. Any unauthorized further disclosure in violation of state law may result in a fine or long term sentence or both. A general authorization for the release of medical or other information is NOT sufficient authorization for further disc losure. Family History Family Member Name Family Member Gender Family Member Status Date o f Status Description Data Source(s) Unknown Unknown Problem [facility] ([facility], ) Unknown Male Problem [facility] ([facility]) Encounters Encounter Providers Location Date Indications Data Source(s ) Outpatient Attender: VINAYAK Wright/Farooq/Watson/ Annmarie 10/04/2020 10:15:00 AM EDT [facility] ([facility], ) Outpatient Attender: ABIODUN ARREDONDO MDConsultant: ABIODUN RUFF MD 07/21/2020 09:06:00 AM EDT - 07/21/2020 10:06:00 AM EDT [facility] Patient discharged. Outpatient Attender: ABIODUN ARREDONDO MDConsultant: ABIODUN RUFF MD 07/13/2020 01:38:35 PM EDT - 07/14/2020 07:21:00 AM EDT [facility] Patient discharged. Outpatient Attender: JEISON Wright/Farooq/Watson/Rein dl 07/11/2020 09:30:00 AM EDT [facility] ([facility], ) Outpatient Attender: ABIODUN ARREDONDO MD [facility] 12/2020 11:30:00 AM EDT [facility] ([facility] Outpatient [address] [facility], [facility] [address] 05/16/2020 12:00:00 AM EDT eCW1 ([facility]) [facility] [address] [place] [address] 03/14/2020 12:00:00 AM EST eCW1 ([facility]) Outpatient Attender: PURVI sheriff 03/04/2020 01:35:00 PM EST [facility] ([facility]) Immunizations Vaccine Date Status Description Data Source(s) New in 2012. IIV4 12/18/2019 02:24:00 PM EDT [facility] Medications Medication Brand Name Start Date Product Form Dose Route Admi nistrative Instructions Pharmacy Instructions Status Indications Reaction Description Data Source(s) 20 mg 12/10/2020 12:00:00 AM EDT capsule,delayed release (DR/EC) 30 TAKE 1 CAPSULE BY MOUTH EVERY MORNING TAKE 1 CAPSULE BY MOUTH EVERY MORNING SOLD: 12/16/2020 [facility] 75 mg 12/10/2020 12:00:00 AM EDT capsule,extended releas e 24hr 30 TAKE 1 CAPSULE BY MOUTH EVERY DAY TAKE 1 CAPSULE BY MOUTH EVERY DAY SOLD: 12/16/2020 [facility] 20 mg 10/12/2020 12:00:00 AM EDT capsule,delayed release (DR/EC) 30 TAKE 1 CAPSULE BY MOUTH EVERY MORNING TAKE 1 CAPSULE BY MOUTH EVERY MORNING SOLD: 11/12/2020 [facility] 20 mg 10/12/2020 12:00:00 AM EDT capsule,delayed release (DR/EC) 30 TAKE 1 CAPSULE BY MOUTH EVERY MORNING TAKE 1 CAPSULE BY MOUTH EVERY MORNING SOLD: 10/14/2020 [facility] 75 mg 10/12/2020 12:00:00 AM EDT capsule,extended releas e 24hr 30 TAKE 1 CAPSULE BY MOUTH EVERY DAY TAKE 1 CAPSULE BY MOUTH EVERY DAY SOLD: 10/14/2020 [facility] 75 mg 10/12/2020 12:00:00 AM EDT capsule,extended releas e 24hr 30 TAKE 1 CAPSULE BY MOUTH EVERY DAY TAKE 1 CAPSULE BY MOUTH EVERY DAY SOLD: 11/12/2020 [facility] 75 mg 08/09/2020 12:00:00 AM EDT capsule,extended releas e 24hr 30 TAKE 1 CAPSULE BY MOUTH EVERY DAY TAKE 1 CAPSULE BY MOUTH EVERY DAY SOLD: 09/14/2020 [facility] 75 mg 08/09/2020 12:00:00 AM EDT capsule,extended releas e 24hr 30 TAKE 1 CAPSULE BY MOUTH EVERY DAY TAKE 1 CAPSULE BY MOUTH EVERY DAY SOLD: 08/12/2020 [facility] 20 mg 08/09/2020 12:00:00 AM EDT capsule,delayed release (DR/EC) 30 TAKE 1 CAPSULE BY MOUTH EVERY MORNING TAKE 1 CAPSULE BY MOUTH EVERY MORNING SOLD: 09/14/2020 [facility] 20 mg 08/09/2020 12:00:00 AM EDT capsule,delayed release (DR/EC) 30 TAKE 1 CAPSULE BY MOUTH EVERY MORNING TAKE 1 CAPSULE BY MOUTH EVERY MORNING SOLD: 08/12/2020 [facility] 17 gram/dose 07/11/2020 12:00:00 AM EDT powder [address] CROWDER COLON PREPARATION INSTRUCTIONS USE DIRECTED SEE DR. CROWDER COLON PREPARATION INSTRUCTIONS SOLD: 07/12/2020 [facility] MAGNESIUM CITRATE 07/11/2020 12:00:00 AM EDT solution 296 DRINK 1 BOTTLE GREEN OR CLEAR ONLY, USE FOR ADDITIONAL PREP AT 2-3 DAYS BEFORE PROCEDURE DRINK 1 BOTTLE GREEN OR CLEAR ONLY, USE FOR ADDITIONAL PREP AT 2-3 DAYS BEFORE PROCEDURE SOLD: 07/12/2020 [facility] POLYETHYLENE GLYCOL 3350 142 MG/ML Oral Solution [Miralax] M iralax 07/11/2020 12:00:00 AM EDT completed MED[facility] ([facility], ) magnesium citrate 58.2 MG/ML Oral Solution Magnesium Citrate 07/11/2020 12:00:00 AM EDT completed [facility] ([facility], ) 20 mg 06/10/2020 12:00:00 AM EDT capsule,delayed release (DR/EC) 30 TAKE 1 CAPSULE BY MOUTH EVERY MORNING TAKE 1 CAPSULE BY MOUTH EVERY MORNING SOLD: 06/10/2020 [facility] 20 mg 06/10/2020 12:00:00 AM EDT capsule,delayed release (DR/EC) 30 TAKE 1 CAPSULE BY MOUTH EVERY MORNING TAKE 1 CAPSULE BY MOUTH EVERY MORNING SOLD: 07/12/2020 [facility] 75 mg 06/10/2020 12:00:00 AM EDT capsule,extended releas e 24hr 30 TAKE 1 CAPSULE BY MOUTH EVERY DAY TAKE 1 CAPSULE BY MOUTH EVERY DAY SOLD: 07/12/2020 [facility] 75 mg 06/10/2020 12:00:00 AM EDT capsule,extended releas e 24hr 30 TAKE 1 CAPSULE BY MOUTH EVERY DAY TAKE 1 CAPSULE BY MOUTH EVERY DAY SOLD: 06/10/2020 [facility] 500 mg 01/21/2020 12:00:00 AM EST capsule 4 TAKE 4 CAPSULES BY MOUTH BEFORE APPOINTMENT TAKE 4 CAPSULES BY MOUTH BEFORE APPOINTMENT SOLD: 07/26/2020 [facility] 500 mg 01/21/2020 12:00:00 AM EST capsule 4 TAKE 4 CAPSULES BY MOUTH BEFORE APPOINTMENT TAKE 4 CAPSULES BY MOUTH BEFORE APPOINTMENT SOLD: 04/14/2020 [facility] 500 mg 01/21/2020 12:00:00 AM EST capsule 4 TAKE 4 CAPSULES BY MOUTH BEFORE APPOINTMENT TAKE 4 CAPSULES BY MOUTH BEFORE APPOINTMENT SOLD: 01/21/2020 [facility] 75 mg 11/07/2019 12:00:00 AM EDT capsule,extended releas e 24hr 30 TAKE 1 CAPSULE BY MOUTH EVERY DAY TAKE 1 CAPSULE BY MOUTH EVERY DAY SOLD: 02/08/2020 [facility] 20 mg 11/07/2019 12:00:00 AM EDT capsule,delayed release (DR/EC) 30 TAKE 1 CAPSULE BY MOUTH EVERY MORNING TAKE 1 CAPSULE BY MOUTH EVERY MORNING SOLD: 11/13/2019 [facility] 20 mg 11/07/2019 12:00:00 AM EDT capsule,delayed release (DR/EC) 30 TAKE 1 CAPSULE BY MOUTH EVERY MORNING TAKE 1 CAPSULE BY MOUTH EVERY MORNING SOLD: 04/14/2020 [facility] 75 mg 11/07/2019 12:00:00 AM EDT capsule,extended releas e 24hr 30 TAKE 1 CAPSULE BY MOUTH EVERY DAY TAKE 1 CAPSULE BY MOUTH EVERY DAY SOLD: 03/13/2020 [facility] 75 mg 11/07/2019 12:00:00 AM EDT capsule,extended releas e 24hr 30 TAKE 1 CAPSULE BY MOUTH EVERY DAY TAKE 1 CAPSULE BY MOUTH EVERY DAY SOLD: 12/22/2019 [facility] 75 mg 11/07/2019 12:00:00 AM EDT capsule,extended releas e 24hr 30 TAKE 1 CAPSULE BY MOUTH EVERY DAY TAKE 1 CAPSULE BY MOUTH EVERY DAY SOLD: 01/11/2020 [facility] 20 mg 11/07/2019 12:00:00 AM EDT capsule,delayed release (DR/EC) 30 TAKE 1 CAPSULE BY MOUTH EVERY MORNING TAKE 1 CAPSULE BY MOUTH EVERY MORNING SOLD: 02/08/2020 [facility] 75 mg 11/07/2019 12:00:00 AM EDT capsule,extended releas e 24hr 30 TAKE 1 CAPSULE BY MOUTH EVERY DAY TAKE 1 CAPSULE BY MOUTH EVERY DAY SOLD: 11/13/2019 [facility] 75 mg 11/07/2019 12:00:00 AM EDT capsule,extended releas e 24hr 30 TAKE 1 CAPSULE BY MOUTH EVERY DAY TAKE 1 CAPSULE BY MOUTH EVERY DAY SOLD: 04/14/2020 [facility] 20 mg 11/07/2019 12:00:00 AM EDT capsule,delayed release (DR/EC) 30 TAKE 1 CAPSULE BY MOUTH EVERY MORNING TAKE 1 CAPSULE BY MOUTH EVERY MORNING SOLD: 03/13/2020 [facility] 20 mg 11/07/2019 12:00:00 AM EDT capsule,delayed release (DR/EC) 30 TAKE 1 CAPSULE BY MOUTH EVERY MORNING TAKE 1 CAPSULE BY MOUTH EVERY MORNING SOLD: 12/22/2019 [facility] 20 mg 11/07/2019 12:00:00 AM EDT capsule,delayed release (DR/EC) 30 TAKE 1 CAPSULE BY MOUTH EVERY MORNING TAKE 1 CAPSULE BY MOUTH EVERY MORNING SOLD: 01/11/2020 [facility] Insurance Providers Payer name Policy type / Coverage type Policy ID Covered green party ID Covered green party's relationship to rush Policy Rush Plan Information Pma Ins () Workers Compensation [id number] Self W [id number] [place] [id number] [place] [id number] BC/BS Family [employer] Plus Medigap Part B [id number] Self [id number] BC/BS [employer] Medigap Part B [id number] Self [id number] BC/BS [employer] Plus Health Maintenance Organization (HMO) [id number] Self BC/BS [employer] Medigap Part B [id number] Self [id number] BC/BS [facility] [employer] Medigap Part B [id number] Self [id number] BC/BS [employer] Medigap Part B [id number] Self [id number] BC/BS [employer] Plus Medigap Part B [id number] Self [id number] [facility] Community Plan Medigap Part B [id number] Self 1 [id number] [employer] MCDHMO [id number] SP [id number] [employer] COMM[employer]ITY [employer]AN MCDHMO [id number] SP [id number] [employer] COMM[employer]ITY [employer]AN MCDHMO [id number] SP [id number] [employer] COMM[employer]ITY PLAN MCDHMO [id number] SP [id number] [employer] COMMUNITY PLAN XIX [id number] 18 [id number] [facility] O [id number] S [id number] [facility] Health Maintenance Organization (HMO) [id number] Self [id number] [facility] Health Maintenance Organization (HMO) [id number] Self [id number] [employer] COMM[employer]ITY [employer]AN MCDHMO [id number] SP [id number] PMA MANAGEMENT [facility] [id number] SP [id number] [facility] Medigap Part B [id number] Self PMA MANAGEMENT [facility] S [id number] O [id number] PMA MANAGEMENT [facility] [id number] SP [id number] PMA [id number] SP [id number] [employer] [id number] SP [id number] HMO BLUE [id number] SP [id number] [employer] COMM[employer]AN MCDHMO [id number] SP [id number] Problems, Conditions, and Diagnoses Code Display Name Description Problem Type Effective Dates Data Source(s) K824 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 Diagnosis 07/21/2020 09:06:00 AM EDT [facility] R99 Ill-defined and unknown cause of mortali ty Ill-defined and unknown cause of mortality Diagnosis 07/14/2020 07:21:00 AM EDT [facility] Surgeries/Procedures Procedure Description Date Indications Data Source(s) OFFICE OUTPATIENT VISIT 15 MINUTES 10/04/2020 12:00:00 AM EDT [facility] ([facility]) OFFICE OUTPATIENT NEW 45 MINUTES 07/11/2020 12:00:00 A M EDT [facility] ([facility], ) Results ID Date Data Source [id number] 07/22/2020 01:51:00 PM EDT [facility] [address] [place] [address] PHONE: [phone] FAX: [phone] Name .................. : CODY LINARES Acct Number.................. : [id number] ROOM. ................. : MR Number ................... : [id number] Stay type ............. : O/P Discharge Date......... ... : 07/21/20 Admit Date ......... : 07/21/20 Admit Phys .................... : MARIA ELENA Carmichael Date of ....... : 1960 Family Phys ................... : MARIA ELENA Carmichael Phone .................. : [phone] Age ................................ : 60 Film# .................. .:[id number] Sex ................................. : F Unsigned transcriptions are preliminary reports and do not represent a medical or legal document ABD LIMITED [id number] COMPLETE:07/21/20 09:30 KNB [id number] Reason for Exam: ABD PAIN, RUQ PAIN RIGHT UPPER QUADRANT ULTRASOUND: INDICATION: Abdominal pain, right upper quadrant pain. FINDINGS: Sludge is identified in the gallbladder. There is a 4 mm polyp within the gallbladder. The gallbladder wall is normal at 2.2 mm. No pericholecystic fluid or cholelithiasis is identified. The common duct is normal at 3 mm. The right kidney measures 10.0 x 4.4 x 5.2 cm. No hydronephrosis or nephrolithiasis is identified. The visualized portions of the liver appear unremarkable. The visualized portions of the pancreas are unremarkable. IMPRESSION: Gallbladder sludge and polyp, 4 mm. Examination is otherwise unremarkable. Examination dictated by NIURKA Reyes. Examination was reviewed with Addy De La Cruz MD, radiologist at the time of this dictation. Electronically Reviewed and Signed By Addy De La Cruz DO , 07/22/20 13:51, KARLIE Transcribe Initials: DZ , Transcribe Date: 07/22/20 05:33, Dictation Date: Copy for: MARIA ELENA RASCON via fax Copy for: [address] [place] [address] Page 1 of 1 Name Value Range Interpretation Code Description Data Janneth rce(s) Supporting Document(s) ID Date Data Source [id number] 06/28/2020 11:46:00 AM EDT [facility] ([facility] Name Value Range Interpretation Code Description Data Janneth rce(s) Supporting Document(s) Lipoprotein lipase [Enzymatic activity/volume] in Serum or Plasm a 135 U/L 14-72 Above high normal [facility] ([facility] ) Amylase [Enzymatic activity/volume] in Serum or Plasma 126 U/L 31-110 Above high normal [facility] ([facility] ) ID Date Data Source [id number] 06/28/2020 11:46:00 AM EDT [facility] ([facility] Name Value Range Interpretation Code Description Data Janneth rce(s) Supporting Document(s) Glucose [Mass/volume] in Serum or Plasma 96 mg/dL 65-99 [facility] ([facility] Creatinine [Mass/volume] in Serum or Plasma 0.72 mg/dL 0.57-1.00 [facility] ([facility] BUN 13 mg/dL 8-27 [facility] ([facility] eGFR If Africn Am 104 mL/min/1.73 [facility] ([facility] currently reports eGFR in comp liance with the current recommendations of the National Kidney Foundation. [facility] will update reporting as new guidelines are published from the NKF-ASN Task force. eGFR If NonAfricn Am 90 mL/min/1.73 [facility] ([facility] Potassium [Moles/volume] in Serum or Plasma 4.2 mmol/L 3.5-5.2 [facility] ([facility] Urea nitrogen/Creatinine [Mass Ratio] in Serum or Plasma 18 1 2-28 [facility] ([facility] Sodium [Moles/volume] in Serum or Plasma 142 mmol/L 134-144 [facility] ([facility] Calcium [Mass/volume] in Serum or Plasma 9.1 mg/dL 8.7-10.3 [facility] ([facility] Carbon dioxide, total [Moles/volume] in Serum or Plasma 26 mmol/L 20 -29 [facility] ([facility] Chloride [Moles/volume] in Serum or Plasma 104 mmol/L 96-106 [facility] ([facility] Protein [Mass/volume] in Serum or Plasma 7.2 g/dL 6.0-8.5 [facility] ([facility] Albumin [Mass/volume] in Serum or Plasma 4.2 g/dL 3.8-4.8 [facility] ([facility] Globulin [Mass/volume] in Serum by calculation 3.0 g/dL 1.5-4.5 [facility] ([facility] Albumin/Globulin [Mass Ratio] in Serum or Plasma 1.4 1.2-2.2 [facility] ([facility] Bilirubin.total [Mass/volume] in Serum or Plasma 0.3 mg/dL 0.0-1.2 [facility] ([facility] Alkaline phosphatase [Enzymatic activity/volume] in Serum or Plasma 102 IU/L 39-117 [facility] Aspartate aminotransferase [Enzymatic activity/volume] in Serum or Plasma 30 IU/L 0-40 [facility] Alanine aminotransferase [Enzymatic activity/volume] in Seru m or Plasma 28 IU/L 0-32 [facility] ([facility] ID Date Data Source [id number] 06/28/2020 11:46:00 AM EDT [facility] ([facility] Name Value Range Interpretation Code Description Data Janneth rce(s) Supporting Document(s) Leukocytes [#/volume] in Blood by Automated count 4.1 x10E3/uL 3.4-10 .8 [facility] ([facility] Hematocrit [Volume Fraction] of Blood by Automated count 41.5 % 3 4.0-46.6 [facility] ([facility] Hemoglobin [Mass/volume] in Blood 14.0 g/dL 11.1-15.9 [facility] ([facility] Erythrocytes [#/volume] in Blood by Automated count 5.06 x10E6/uL 3.7 7-5.28 [facility] ([facility] Erythrocyte mean corpuscular hemoglobin [Entitic mass] by Automated count 27.7 pg 26.6-33.0 [facility] Erythrocyte mean corpuscular volume [Entitic volume] by Auto mated count 82 fL 79-97 [facility] ([facility] Platelets [#/volume] in Blood by Automated count 296 x10E3/uL 150-450 [facility] ([facility] Erythrocyte distribution width [Ratio] by Automated count 13.9 % 11.7-15.4 [facility] ([facility] Erythrocyte mean corpuscular hemoglobin concentration [Mass/volume] by Automated count 33.7 g/dL 31.5-35.7 [facility] Monocytes/100 leukocytes in Blood by Automated count 9 % [facility] ([facility] Lymphs 38 % [facility] Neutrophils 48 % [facility] Basophils/100 leukocytes in Blood by Automated count 1 % [facility] ([facility] Eosinophils/100 leukocytes in Blood by Automated count 4 % [facility] ([facility] Immature cells [#/volume] in Blood Laboratory test result [facility] ([facility] Neutrophils [#/volume] in Blood by Automated count 2.0 x10E3/uL 1.4-7 .0 [facility] ([facility] Lymphocytes [#/volume] in Blood 1.5 x10E3/uL 0.7-3.1 [facility] ([facility] Monocytes [#/volume] in Blood 0.4 x10E3/uL 0.1-0.9 [facility] ([facility] Eosinophils [#/volume] in Blood by Automated count 0.2 x10E3/uL 0.0-0 .4 [facility] ([facility] Immature granulocytes [#/volume] in Blood by Automated count 0.0 x10E3/uL 0.0-0.1 [facility] ([facility] Basophils [#/volume] in Blood by Automated count 0.0 x10E3/uL 0.0-0.2 [facility] ([facility] Immature granulocytes/100 leukocytes in Blood by Automated count 0 % [facility] ([facility] Nucleated erythrocytes/100 leukocytes [Ratio] in Blood by Automated count Laboratory test result [facility] Morphology [Interpretation] in Blood Narrative Laboratory test result [facility] ([facility] ID Date Data Source [id number] 06/21/2020 12:00:00 AM EDT [facility] Name Value Range Interpretation Code Description Data Janneth rce(s) Supporting Document(s) SARS-CoV2 Rapid Antigen Negative [facility] This lab was reported by [facility]. ID Date Data Source [id number] 03/04/2020 12:00:00 AM EST [facility] Name Value Range Interpretation Code Description Data Janneth rce(s) Supporting Document(s) SARS coronavirus 2 Ag Negative [facility] This lab was ordered by [facility] and reported by [facility]. ID Date Data Source [facility] DIGITAL / REGINA BILATERAL MAMMO SCREENING (Ultraso und if indicated) 05/16/2020 12:00:00 AM EDT [facility] ([facility]) Name Value Range Interpretation Code Description Data Janneth rce(s) Supporting Document(s) [facility] DIGITAL / REGINA BILAT ERAL MAMMO SCREENING (Ultrasound if indicated) [facility] ([facility]) Procedure Social History Code Duration Value Status Description Data Source(s ) Smoking 03/04/2020 12:00:00 AM EST Patient is a former smoker completed Patient is a former smoker [facility] ([facility]) Vital Signs ID Date Data Source UNK Name Value Range Interpretation Code Description Data Source(s) Systolic blood pressure 123 mm[Hg] 123 mm[Hg] [facility] Diastolic blood pressure 79 mm[Hg] 79 mm[Hg] [facility] ([facility]) Body temperature 98.1 [degF] 98.1 [degF] [facility] ([facility]) Body height 64 [in_i] 64 [in_i] [facility] ([facility]) 5'4" Body weight 158.12 [lb_av] 158.12 [lb_av] [facility] ([facility]) Body mass index (BMI) [Ratio] 27.1 kg/m2 27.1 k g/m2 [facility] ([facility]) Rupert body weight 120 [lb_av] 120 [lb_av] [facility] ([facility]) Body weight 71.725 kg 71.725 kg [facility] Body surface area Derived from formula 1.77 m2 1.77 m2 [facility] ([facility]) Body height 64 [in_i] 64 [in_i] [facility] ([facility]) 5'4" Systolic blood pressure 133 mm[Hg] 133 mm[Hg] M [facility] ([facility]) Body mass index (BMI) [Ratio] 27.5 kg/m2 27.5 k g/m2 [facility] ([facility]) Rupert body weight 120 [lb_av] 120 [lb_av] [facility] ([facility]) Body weight 72.576 kg 72.576 kg [facility] ([facility]) Body surface area Derived from formula 1.78 m2 1.78 m2 [facility] ([facility]) Body weight 160.00 [lb_av] 160.00 [lb_av] [facility] ([facility]) Diastolic blood pressure 80 mm[Hg] 80 mm[Hg] [facility] Body height 64 [in_i] 64 [in_i] [facility] ([facility]) 5'4" Body weight 160.00 [lb_av] 160.00 [lb_av] [facility] ([facility]) Body mass index (BMI) [Ratio] 27.5 kg/m2 27.5 k g/m2 [facility] ([facility]) Rupert body weight 120 [lb_av] 120 [lb_av] [facility] ([facility]) Body weight 72.576 kg 72.576 kg [facility] ([facility]) Body surface area Derived from formula 1.78 m2 1.78 m2 [facility] ([facility]) Diastolic blood pressure 84 mm[Hg] 84 mm[Hg] [facility] ([facility] Heart rate 68 /min 68 /min [facility] ([facility] Respiratory rate 16 /min 16 /min [facility] ( [facility] Body height 64.50 [in_i] 64.50 [in_i] [facility] ([facility] 5'4.50" Body weight 157.00 [lb_av] 157.00 [lb_av] [facility] ([facility] Rupert body weight 120 [lb_av] 120 [lb_av] [facility] ([facility] Body mass index (BMI) [Ratio] 26.5 kg/m2 26.5 k g/m2 [facility] ([facility] Oxygen saturation in Arterial blood by Pulse oximetry 95 % 95 % [facility] ([facility] Systolic blood pressure 128 mm[Hg] 128 mm[Hg] M [facility] ([facility] Body temperature 97.0 [degF] 97.0 [degF] [facility] ([facility] Body weight 166 [lb_av] 166 [lb_av] eCW1 ([facility]) Body weight 75.3 kg 75.3 kg W1 ([facility]) Body height 64.5 [in_i] 64.5 [in_i] [facility] ([facility]) Body mass index (BMI) [Ratio] 28.05 kg/m2 28.05 kg/m2 [facility] ([facility]) Systolic blood pressure 118 mm[Hg] 118 mm[Hg] e CW1 ([facility]) Diastolic blood pressure 68 mm[Hg] 68 mm[Hg] [facility] ([facility]) Diastolic blood pressure 80 mm[Hg] 80 mm[Hg] [facility] ([facility]) Systolic blood pressure 127 mm[Hg] 127 mm[Hg] [facility] ([facility]) Body height 64 [in_i] 64 [in_i] [facility] ([facility]) 5'4" Body mass index (BMI) [Ratio] 28.1 kg/m2 28.1 k g/m2 [facility] ([facility]) Body weight 164.00 [lb_av] 164.00 [lb_av] [facility] ([facility]) Heart rate 91 /min 91 /min [facility] ([facility]) Respiratory rate 16 /min 16 /min [facility] ( [facility]) Oxygen saturation in Arterial blood by Pulse oximetry 95 % 95 % [facility] ([facility])
[~2020-12-30] VITALS: Ht 162.6 cm; Wt 71.7 kg
[~2020-12-30 10:03] MED LIST changes: +NS 1,000 ML IV ONE
--- OUTSIDE RECORDS SUMMARY | 2020-12-30 10:07 | CCD | Continuity of Care Document ---
Author Author Whitney CARR MD Organization Unknown Address [address] [place] [id number] Phone [phone] Care Team Providers Care Internal Communications Writer Name Role Phone Eric Amaya D.O. AUTM [phone] Beto Dean M.D. AUTM [phone] Problems Active Problems Provider Date Malignant tumor [...] and fibrosis of skin Pat L Anju DO Ons et: 12/01/2013 Neoplasm of uncertain behavior [...] SIG Qnty Indications Ordering Provide r Date Magnesium Citrate 1.745GM/30ML Flor ution one 10 oz bottle green or clear only, use for additional prep at 2-3 days before procedure 296ml R19.4 Charlie Carr MD 12/26/2020 Miralax 17GM/Scoop Powder use as directed see dr carr colon preparation instructions 238gm R19.4 Los Carr MD 12/26/[address] bryn casillas needed Unknown Venlafaxine HCL 75mg Tablets 1 by mouth every day Unknown History Medications Magnesium Citrate 1.745GM/30ML Flor ution one 10 oz bottle green or clear only, use for additional prep at 2-3 days before procedure 296ml R19.4 Charlie Carr MD 12/26/2020 - Magnesium Citrate 1.745GM/30ML Flor ution one 10 oz bottle green or clear only, use for additional prep at 2-3 days before procedure 296ml R19.4 Charlie Carr MD 07/11/2020 - Miralax 17GM/Scoop Powder use as directed see dr carr colon preparation instructions 238gm R19.4 Los Carr MD 07/11/2020 - 10/04/2020 Immunizations Description No Information Available Vital Signs Date Vital Result Comment 10/04/2020 10:30am BP Systolic 123 mmHg BP Diastolic 79 mmHg Body Temperature 98.1 F Height 64 inches 5'4" Weight 158.12 lb BMI (Body Mass Index) 27.1 kg/m2 [place] Body Weight 120 lb Weight 71.725 kg BSA (Body Surface Area) 1.77 m2 07/11/2020 9:49am BP Systolic 133 mmHg BP Diastolic 80 mmHg Height 64 inches 5'4" Weight 160.00 lb BMI (Body Mass Index) 27.5 kg/m2 [place] Body Weight 120 lb Weight 72.576 kg BSA (Body Surface Area) 1.78 m2 Results Test Acquired Date Facility Test Result H/L Range Note Coronavirus 2019 Nasopharygeal 12/26/2020 [facility] [address] [place] [address] [phone] Coronavirus 2019 Nasopharygeal ASSAY INFORMATIO <SEE N OTE> 1 1 ASSAY INFORMATION: Real Time RT-PCR NOTE: The COVID-19 assay has been cleared by the U.S. Food and Drug Administration under the Emergency Use Authorization (EUA). [employer] and [employer] are designated as high complexity laboratories by the Clinical Laboratory Improvement Amendments of 1988(CLIA) and are qualified to perform this test. Not Detected Procedures Date Code Description Status 10/04/2020 50936 Office/Outpatient Established Lo w MDM 20-29 Min Completed 07/11/2020 32557 Office/Outpatient New Moderate M DM 45-59 Minutes Completed Medical Devices Description No Information Available Encounters Type Date Location Provider Dx Diagnosis Office Visit 10/04/2020 10:15a [facility] Practice Rafat Jiménez MD R14.0 Abdominal distension (gaseou s) K80.20 Calculus of gallbladder w/o cholecystitis w/o obstruction K59.00 Constipation, unspecified Office Visit 07/11/2020 9:30a [facility] Gastroenterology Pra ctice Charlie Carr MD R19.4 Change in bowel habit R94.5 Abnormal results of liver fu nction studies Assessments Date Code Description Provider 10/04/2020 R14.0 Abdominal bloating Narendra Haider MD 10/04/2020 K80.20 Cholelithiasis without obstructi on Narendra Jiménez MD 10/04/2020 K59.00 Constipation Narendra toro MD 07/11/2020 R19.4 Change in bowel habit Charlie henriquez MD 07/11/2020 R94.5 Abnormal results of liver functi on studies Charlie Carr MD Plan of Treatment Future Appointment(s):* 12/30/2020 11:05 am - Charlie Carr MD at [facility] Gastroenterology Practice 10/04/2020 - Narendra [...] CORD AND LARYNX Sched uled 02/25/2014 [address] [facility] [address] [place], [place] [id number] [phone] [facility] History of gallstone/sludge pancreatitis Closed [phone] Charlie Carr M.D. z12.11- colo screening Scheduled 06/19 [facility], Gastroenterology [address] [facility] [address] [place], [place] [id number] [phone]
--- OUTSIDE RECORDS SUMMARY | 2020-12-30 10:07 | CCD | Continuity of Care Document ---
Author Organization Unknown Address Unknown Phone Unavailable Care Team Providers Care Concrete Floor Installer Name Role Phone Jose Luis Eric D.O. [facility] [phone] Problems Active Problems Provider Date Disorder of urinary tract Otilio Casas . 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 08/18 Venlafaxine HCL ER 75mg Caps ER 24 HR Take 1 Capsule By Mouth Every Day 30Beto Macias M.D. 01/23/[address] Take 1 Capsule By Mouth Every Morning 30Beto Macias M.D. 0 Medications Administered in Office Medication SIG Qnty Indications Ordering Provider Date Injection (SC)/(Im) Injection Beto Dean M.D. 12/13/2014 Injection (SC)/(Im) Injection Ruby Pires D., STAFF EDITOR-C 10/08/2014 Injection (SC)/(Im) Injection Beto Dean M.D. 11/13/2013 Immunizations CPT Code Status Date Vaccine Lot # [id number] Given 12/18/2019 Influenza Virus Vaccine, Quadrivalent, Slit Virus, Im Use 3Y & Up [id number] 41644 Given 12/26/2018 Influenza Virus Vaccine, Quadrivalent, Slit Virus, Im Use 3Y & Up [id number] 89981 Given 12/18/2017 Influenza Virus Vaccine, Quadrivalent, Slit Virus, Im Use 3Y & Up [id number] 36916 Given 11/30/2015 Influenza Virus Vaccine, Quadrivalent, Slit Virus, Im Use 3Y & Up [id number] 43274 Given 12/13/2014 Influenza Virus Vac. Split Virus Individuals 3 Years And Above [id number] 99914 Given 10/08/2014 Tdap Tetanus,Dip htheria Toxoids/Acellular Pertussis 7Yrs Or Older [id number] 82424 Given 11/13/2013 Influenza Virus Vac. Split Virus Individuals 3 Years And Above [id number] Vital Signs Date Vital Result Comment 06/28/2020 12:09pm BP Systolic 128 mmHg BP Diastolic 84 mmHg Body Temperature 97.0 F Heart Rate 68 /min Respiratory Rate 16 /min Height 64.50 inches 5'4.50" Weight 157.00 lb [place] Body Weight 120 lb BMI (Body Mass Index) 26.5 kg/m2 O2 % BldC Oximetry 95 % 07/03/2019 1:25pm BP Systolic 134 mmHg BP Diastolic 78 mmHg Body Temperature 97.4 F Heart Rate 74 /min Respiratory Rate 14 /min Height 64.50 inches 5'4.50" Weight 166.00 lb [place] Body Weight 120 lb BMI (Body Mass Index) 28.1 kg/m2 O2 % BldC Oximetry 97 % Results Test Acquired Date Facility Test Result H/L Range Note Coronavirus 2019 Nasopharygeal 12/26/2020 [facility] ([facility]) [phone] Coronavirus 2019 Nasopharygeal ASSAY INFORMATIO <SEE N OTE> 1 CBC With Differential/Platelet 06/28/2020 [facility] E WBC 4.1 x10E3/uL 3.4-10.8 RBC 5.06 x10E6/uL 3.77-5.28 Hemoglobin 14.0 g/dL 11.1-15.9 Hematocrit 41.5 % 34.0-46.6 MCV 82 fL 79-97 MCH 27.7 pg 26.6-33.0 MCHC 33.7 g/dL 31.5-35.7 RDW 13.9 % 11.7-15.4 Platelets 296 x10E3/uL 150-450 Neutrophils 48 % Not Estab. Lymphs 38 % Not Estab. Monocytes 9 % Not Estab. Eos 4 % Not Estab. Basos 1 % Not Estab. Immature Cells TNP Neutrophils (Absolute) 2.0 x10E3/uL 1.4-7.0 Lymphs (Absolute) 1.5 x10E3/uL 0.7-3.1 Monocytes(Absolute) 0.4 x10E3/uL 0.1-0.9 Eos (Absolute) 0.2 x10E3/uL 0.0-0.4 Baso (Absolute) 0.0 x10E3/uL 0.0-0.2 Immature Granulocytes 0 % Not Estab. Immature Grans (Abs) 0.0 x10E3/uL 0.0-0.1 NRBC TNP Hematology Comments: TNP Metabolic Panel (14), Comprehensive 06/28/2020 [facility] [place] Glucose 96 mg/dL 65-99 BUN 13 mg/dL 8-27 Creatinine 0.72 mg/dL 0.57-1.00 eGFR If NonAfricn Am 90 mL/min/1.73 >59 eGFR If Africn Am 104 mL/min/1.73 >59 2 BUN/Creatinine Ratio 18 12-28 Sodium 142 mmol/L 134-144 Potassium 4.2 mmol/L 3.5-5.2 Chloride 104 mmol/L 96-106 Carbon Dioxide, Total 26 mmol/L 20-29 Calcium 9.1 mg/dL 8.7-10.3 Protein, Total 7.2 g/dL 6.0-8.5 Albumin 4.2 g/dL 3.8-4.8 Globulin, Total 3.0 g/dL 1.5-4.5 A/G Ratio 1.4 1.2-2.2 Bilirubin, Total 0.3 mg/dL 0.0-1.2 Alkaline Phosphatase 102 IU/L 39-117 Ast (Sgot) 30 IU/L 0-40 Alt (SGPT) 28 IU/L 0-32 Laboratory test finding 06/28/2020 [facility] [place] Lipase 135 U/L High 14-72 Amylase 126 U/L High 31-110 1 ASSAY INFORMATION: Real Time RT-PCR NOTE: The COVID-19 assay has been cleared by the U.S. Food and Drug Administration under the Emergency Use Authorization (EUA). [employer] and [employer] are designated as high complexity laboratories by the Clinical Laboratory Improvement Amendments of 1988(CLIA) and are qualified to perform this test. Not Detected 2 [facility] currently reports eGFR in compliance with the current recommendations of the National Kidney Foundation. [facility] will update reporting as new guidelines are published from the NKF-ASN Task force. Procedures Date Code Description Status 06/28/2020 60368 Office/Outpatient Established Lo w MDM 20-29 Min Completed Medical Devices Description No Information Available Encounters Type Date Location Provider Dx Diagnosis Office Visit 06/28/2020 11:30a [place] [facility] Beto Dean M. D. R10.9 Unspecified abdominal pain Assessments Date Code Description Provider 06/28/2020 R10.9 Unspecified abdominal pain Alin Beto rowley M.D. Plan of Treatment No Information Available Functional Status Description No Information Available Mental Status Description No Information Available Referrals Refer to Reason for Referral Status Appt Date Marco Antonio Ibanez M.D. biliary sludge, pancreatitis , surgical eval recommended by GI- eval and rx Sent [address] [place] [address], [address] [place], [place] [id number] [phone]
--- OUTSIDE RECORDS SUMMARY | 2020-12-30 10:07 | CCD | Continuity of Care Document ---
Author Organization Unknown Address Unknown Phone Unavailable Care Team Providers Care Gas Pumping Station Operator Name Role Phone Jose Luis Eric D.O. [facility] [phone] Problems Active Problems Provider Date Disorder of [...] 12/13/2014 Injection (SC)/(Im) Injection Ruby Pires D., UX DESIGN MANAGER-C 10/08/2014 Injection (SC)/(Im) Injection Beto Dean M.D. 11/13/2013 Immunizations CPT Code Status Date Vaccine Lot # [id number] Given 12/18/2019 Influenza Virus Vaccine, Quadrivalent, Slit Virus, Im Use 3Y & Up [id number] 57664 Given 12/26/2018 Influenza Virus Vaccine, Quadrivalent, Slit Virus, Im Use 3Y & Up [id number] 76958 Given 12/18/2017 Influenza Virus Vaccine, Quadrivalent, Slit Virus, Im Use 3Y & Up [id number] 68389 Given 11/30/2015 Influenza Virus Vaccine, Quadrivalent, Slit Virus, Im Use 3Y & Up [id number] 16917 Given 12/13/2014 Influenza Virus Vac. Split Virus Individuals 3 Years And Above [id number] 59255 Given 10/08/2014 Tdap Tetanus,Dip htheria Toxoids/Acellular Pertussis 7Yrs Or Older [id number] 88889 Given 11/13/2013 Influenza Virus Vac. Split Virus Individuals 3 Years And Above [id number] Vital Signs Date Vital Result Comment 06/28/2020 12:09pm BP Systolic 128 mmHg BP Diastolic 84 mmHg Body Temperature 97.0 F Heart Rate 68 /min Respiratory Rate 16 /min Height 64.50 inches 5'4.50" Weight 157.00 lb [place] Body Weight 120 lb BMI (Body Mass Index) 26.5 kg/m2 O2 % BldC Oximetry 95 % 07/03/2019 1:25pm BP Systolic 134 mmHg BP Diastolic 78 mmHg Body Temperature 97.4 F Heart Rate 74 /min Respiratory Rate 14 /min Height 64.50 inches 5'4.50" Weight 166.00 lb [place] Body Weight 120 lb BMI (Body Mass Index) 28.1 kg/m2 O2 % BldC Oximetry 97 % Results Test Acquired Date Facility Test Result H/L Range Note Coronavirus 2019 Nasopharygeal 12/26/2020 [facility] ([facility]) [phone] Coronavirus 2019 Nasopharygeal ASSAY INFORMATIO <SEE N [...] Administration under the Emergency Use Authorization (EUA). [employer] [facility] [employer] are designated as high complexity laboratories by the Clinical Laboratory Improvement Amendments of 1988(CLIA) and are qualified to perform this test. Not Detected 2 [facility] currently reports eGFR in compliance with the current recommendations of the National Kidney Foundation. [facility] will update reporting as new guidelines are published from the NKF-ASN Task force. Procedures Date Code Description Status 06/28/2020 12506 Office/Outpatient Established Lo w MDM 20-29 Min Completed Medical Devices Description No Information Available Encounters Type Date Location Provider Dx Diagnosis Office Visit 06/28/2020 11:30a [place] [facility] Beto Dean M. D. R10.9 Unspecified [...] recommended by GI- eval and rx Sent [address] [place] [address], [address] [place], [place] [address] [phone]
--- OUTSIDE RECORDS SUMMARY | 2020-12-30 10:08 | CCD ---
Author Author [facility] Organization [facility] Address Unknown Phone Unavailable Care Team Providers Care Rn Labor Delivery Name Role Phone JEISON CROWDER MD Unavailable Unavailable REINDL, JEISON CALVO Unavailable Unavailable REINDL, JEISON CALVO Unavailable Unavailable REINDL, JEISON CALVO Unavailable Unavailable REINDL, JESION CALVO Unavailable Unavailable REINDL, JEISON CALVO Unavailable [...] A PURVI PA Unavailable Unavailable LETTIERE, A PRUVI PA Unavailable Unavailable LETTIERE, A PURVI PA [...] is protected by Article 27-F of the [facility] Public Health law. If you continue you may have access to information: Regarding HIV / AIDS; Provided by facilities licensed or operated by the [facility] Office of Mental Health; or Provided by the [facility] Office for People With Developmental Disabilities. If such information is present, then the following [facility] mandated warning applies: This information has been [...] law may result in a fine or skilled nursing sentence or both. A general authorization for the release of medical or other information is NOT sufficient authorization for further disc losure. Family History Family Member Name Family Member Gender Family Member Status Date o f Status Description Data Source(s) Unknown Unknown Problem [facility] ([facility], ) Unknown Male Problem [facility] ([facility]) Encounters Encounter Providers Location Date Indications Data Source(s ) Outpatient Attender: VINAYAK Wright/Farooq/Watson/ Annmarie 10/04/2020 10:15:00 AM EDT MED[facility] ([facility], ) Outpatient Attender: ABIODUN ARREDONDO MDConsultant: ABIODUN RUFF MD 07/21/2020 09:06:00 AM EDT - 07/21/2020 10:06:00 AM EDT [facility] Patient discharged. Outpatient Attender: ABIODUN ARREDONDO MDConsultant: ABIODUN RUFF MD 07/13/2020 01:38:35 PM EDT - 07/14/2020 07:21:00 AM EDT [facility] Patient discharged. Outpatient Attender: JEISON Wright/Farooq/Watson/Rein dl 07/11/2020 09:30:00 AM EDT MED[facility] ([facility], ) Outpatient Attender: ABIODUN ARREDONDO MD [facility] 12/2020 11:30:00 AM EDT MEDENT ([facility] Outpatient [address] [facility], [facility] [address] 05/16/2020 12:00:00 AM EDT eCW1 ([facility]) [facility] [address] [place] [address] 03/14/2020 12:00:00 AM EST eCW1 ([facility]) Outpatient Attender: PURVI sheriff 03/04/2020 01:35:00 PM EST MED[facility] ([facility] Immunizations Vaccine Date Status Description Data Source(s) New in 2012. IIV4 12/18/2019 02:24:00 PM EDT [facility] Medications Medication Brand [...] CAPSULE BY MOUTH EVERY MORNING SOLD: 10/14/2020 [facility] 75 mg 10/12/2020 12:00:00 AM EDT [...] COLON PREPARATION INSTRUCTIONS USE DIRECTED SEE DR. RCOWDER COLON PREPARATION INSTRUCTIONS SOLD: 07/12/2020 [facility] [...] iralax 07/11/2020 12:00:00 AM EDT completed MEDENT ([facility], ) magnesium citrate 58.2 MG/ML Oral Solution Magnesium Citrate 07/11/2020 12:00:00 AM EDT completed [facility] ([facility], ) 20 mg 06/10/2020 12:00:00 AM [...] type / Coverage type Policy ID Covered constitution party ID Covered constitution party's relationship to rush Policy Rush Plan Information Pma Ins () Workers Compensation [id number] Self W [id number] [place] [id number] [place] [id number] BC/BS Family Health Plus Medigap Part B [id number] Self [id number] BC/BS Family Health Plus Medigap Part B [id number] Self [id number] BC/BS Family Health Plus Health Maintenance Organization (HMO) [id number] Self BC/BS Family Health Plus Medigap Part B [id number] Self [id number] BC/BS Family Health Plus Medigap Part B [id number] Self [id number] BC/BS Family Health Plus Medigap Part B [id number] Self [id number] BC/BS Family Health Plus Medigap Part B [id number] Self [id number] [facility] Community Plan Medigap Part B [id number] Self [id number] [employer] COMMUNITY PLAN MCDHMO [id number] SP [id number] [employer] COMMUNITY PLAN MCDHMO [id number] SP [id number] [employer] COMMUNITY PLAN MCDHMO [id number] SP [id number] [employer] COMMUNITY PLAN MCDHMO [id number] SP [id number] [employer] COMMUNITY PLAN XIX [id number] 18 [id number] [facility] O [id number] S [id number] [facility] Health Maintenance Organization (HMO) [id number] Self [id number] [facility] Health Maintenance Organization (HMO) [id number] Self [id number] [employer] COMMUNITY PLAN MCDHMO [id number] SP [id number] PMA MANAGEMENT [facility] [id number] SP [id number] 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 Diagnosis 07/21/2020 09:06:00 AM EDT [facility] R99 Ill-defined and unknown cause of mortali ty Ill-defined and unknown cause of mortality Diagnosis 07/14/2020 07:21:00 AM EDT [facility] Surgeries/Procedures Procedure Description Date Indications Data Source(s) OFFICE OUTPATIENT VISIT 15 MINUTES 10/04/2020 12:00:00 AM EDT [facility] ([facility]) OFFICE OUTPATIENT NEW 45 MINUTES 07/11/2020 12:00:00 A M EDT [facility] ([facility], ) Results ID Date Data Source [id number] 07/22/2020 01:51:00 PM EDT [facility] [address] [place] [address] PHONE: [phone] FAX: [phone] Name .................. : CODY LINARES Acct Number.................. : [id number] ROOM. ................. : MR Number ................... : [id number] Stay type ............. : O/P Discharge Date......... ... : 07/21/20 Admit Date ......... : 07/21/20 Admit Phys .................... : MARIA ELENA Carmichael Date of ....... : 1960 Family Phys ................... : MARIA ELENA Carmichael Phone .................. : [phone] Age ................................ : 60 Film# .................. .:[id number] Sex ................................. : F Unsigned transcriptions are preliminary reports and do not represent a medical or legal document ABD LIMITED [id number] COMPLETE:07/21/20 09:30 KNB [id number] Reason for Exam: ABD PAIN, RUQ PAIN [...] MARIA ELENA RASCON via fax Copy for: [address] [place] [address] Page 1 of 1 Name Value Range Interpretation Code Description Data Janneth rce(s) Supporting Document(s) ID Date Data Source [id number] 06/28/2020 11:46:00 AM EDT MED[facility] ([facility] Name Value Range Interpretation Code Description Data Janneth rce(s) Supporting Document(s) Lipoprotein lipase [Enzymatic activity/volume] in Serum or Plasm a 135 U/L 14-72 Above high normal MED[facility] ([facility] ) Amylase [Enzymatic activity/volume] in Serum or Plasma 126 U/L 31-110 Above high normal [facility] ([facility] ) ID Date Data Source [id number] 06/28/2020 11:46:00 AM EDT [facility] ([facility] Name Value Range Interpretation Code Description Data Janneth rce(s) Supporting Document(s) Glucose [Mass/volume] in Serum or Plasma 96 mg/dL 65-99 MED[facility] ([facility] Creatinine [Mass/volume] in Serum or Plasma 0.72 mg/dL 0.57-1.00 MED[facility] ([facility] BUN 13 mg/dL 8-27 MED[facility] ([facility] eGFR If Africn Am 104 mL/min/1.73 ME DENT ([facility] currently reports [...] Associat es, [facility].) ID Date Data Source [id number] 06/28/2020 11:46:00 AM EDT MED[facility] ([facility] Name Value Range Interpretation [...] [facility] Neutrophils 48 % [facility] ([facility] Basophils/100 leukocytes in Blood [...] [Interpretation] in Blood Narrative Laboratory test result [facility] ([facility] ID Date Data Source [id number] 06/21/2020 12:00:00 AM EDT [facility] Name Value Range Interpretation Code Description Data Janneth rce(s) Supporting Document(s) SARS-CoV2 Rapid Antigen Negative [facility] This lab was reported by [facility]. ID Date Data Source [id number] 03/04/2020 12:00:00 AM EST [facility] Name Value Range Interpretation Code Description Data Janneth rce(s) Supporting Document(s) SARS coronavirus 2 Ag Negative [facility] This lab was ordered by [facility] and reported by [facility]. ID Date Data Source [facility] DIGITAL / REGINA BILATERAL MAMMO SCREENING (Ultraso und if indicated) 05/16/2020 12:00:00 AM EDT eC ([facility]) Name Value Range Interpretation Code Description Data Janneth rce(s) Supporting Document(s) BC DIGITAL / REGINA BILAT ERAL MAMMO SCREENING (Ultrasound if indicated) [facility] ([facility]) Procedure Social History Code Duration Value Status Description Data Source(s ) Smoking 03/04/2020 12:00:00 AM EST Patient is a former smoker completed Patient is a former smoker [facility] ([facility]) Vital Signs ID Date Data Source UNK Name Value Range Interpretation Code Description Data Source(s) Systolic blood pressure 123 mm[Hg] 123 mm[Hg] [facility] Diastolic blood pressure 79 mm[Hg] 79 mm[Hg] [facility] ([facility]) Body temperature 98.1 [degF] 98.1 [degF] [facility] ([facility]) Body height 64 [in_i] 64 [in_i] [facility] ([facility]) 5'4" Body weight 158.12 [lb_av] 158.12 [lb_av] MEDEN T ([facility]) Body mass index (BMI) [Ratio] 27.1 kg/m2 27.1 k g/m2 [facility] ([facility]) [place] body weight 120 [lb_av] 120 [lb_av] MEDEN T ([facility]) Body weight 71.725 kg 71.725 kg MED[facility] ([facility]) Body surface area Derived from formula 1.77 m2 1.77 m2 [facility] ([facility]) Body height 64 [in_i] 64 [in_i] [facility] ([facility]) 5'4" Body weight 160.00 [lb_av] 160.00 [lb_av] MEDEN T ([facility]) Body mass index (BMI) [Ratio] 27.5 kg/m2 27.5 k g/m2 [facility] ([facility]) [place] body weight 120 [lb_av] 120 [lb_av] MEDEN T ([facility]) Body weight 72.576 kg 72.576 kg [facility] ([facility]) Body surface area Derived from formula 1.78 m2 1.78 m2 [facility] ([facility]) Systolic blood pressure 133 mm[Hg] 133 mm[Hg] EDENT ([facility]) Diastolic blood pressure 80 mm[Hg] 80 mm[Hg] [facility] ([facility]) Body height 64 [in_i] 64 [in_i] [facility] ([facility]) 5'4" Body weight 160.00 [lb_av] 160.00 [lb_av] MEDEN T ([facility]) Body mass index (BMI) [Ratio] 27.5 kg/m2 27.5 k g/m2 [facility] ([facility]) [place] body weight 120 [lb_av] 120 [lb_av] MEDEN T ([facility]) Body weight 72.576 kg 72.576 kg [facility] ([facility]) Body surface area Derived from formula 1.78 m2 1.78 m2 [facility] ([facility]) Diastolic blood pressure 84 mm[Hg] 84 mm[Hg] [facility] ([facility] Body temperature 97.0 [degF] 97.0 [degF] [facility] ([facility] Heart rate 68 /min 68 /min [facility] ([facility] Respiratory rate 16 /min 16 /min MED[facility] ( [facility] Systolic blood pressure 128 mm[Hg] 128 mm[Hg] M EDENT ([facility] Body height 64.50 [in_i] 64.50 [in_i] MEDENT ([facility] 5'4.50" [place] body weight 120 [lb_av] 120 [lb_av] MEDEN T ([facility] Body weight 157.00 [lb_av] 157.00 [lb_av] MEDEN T ([facility] Body mass index (BMI) [Ratio] 26.5 kg/m2 26.5 k g/m2 [facility] ([facility] Oxygen saturation in Arterial blood by Pulse oximetry 95 % 95 % [facility] ([facility] Body weight 166 [lb_av] 166 [lb_av] eCW1 ([facility]) Body weight 75.3 kg 75.3 kg W1 ([facility]) Body height 64.5 [in_i] 64.5 [in_i] eCW1 ([facility]) Body mass index (BMI) [Ratio] 28.05 kg/m2 28.05 kg/m2 eCW1 ([facility]) Systolic blood pressure 118 mm[Hg] 118 mm[Hg] e CW1 ([facility]) Diastolic blood pressure 68 mm[Hg] 68 mm[Hg] eCW1 ([facility]) Systolic blood pressure 127 mm[Hg] 127 mm[Hg] M EDENT ([facility]) Diastolic blood pressure 80 mm[Hg] 80 mm[Hg] MEDENT ([facility]) Heart rate 91 /min 91 /min MEDENT ([facility], [facility]) Body weight 164.00 [lb_av] 164.00 [lb_av] MEDEN T ([facility]) Respiratory rate 16 /min 16 /min [facility] ( [facility]) Oxygen saturation in Arterial blood by Pulse oximetry 95 % 95 % [facility] ([facility], [facility]) Body height 64 [in_i] 64 [in_i] [facility] ([facility]) 5'4" Body mass index (BMI) [Ratio] 28.1 kg/m2 28.1 k g/m2 [facility] ([facility])
--- NOTE | 2020-12-30 11:34 | ROOR ---
Patient Name: Whitney Shannon Procedure Date: 12/30/2020 11:09 AM Date of : 1960 Age: 60 Room: [id number] Gender: Female Note Status: Finalized Procedure: Colonoscopy Indications: Change in bowel habits Providers: Charlie Anguiano MD Referring MD: ABIODUN ARREDONDO MD Requesting Provider: Medicines: Monitored Anesthesia Care Complications: No immediate complications. Procedure: Pre-Anesthesia Assessment: - The heart rate, respiratory rate, oxygen saturations, blood pressure, adequacy of pulmonary ventilation, and response to care were monitored throughout the procedure. The Colonoscope was introduced through the anus and advanced to the terminal ileum, with identification of the appendiceal orifice and IC valve. The colonoscopy was performed without difficulty. The patient tolerated the procedure well. The quality of the bowel preparation was good. Findings: The perianal and digital rectal examinations were normal. Two sessile polyps were found in the splenic flexure and ascending colon. The polyps were diminutive in size. These polyps were removed with a cold snare. Resection and retrieval were complete. A single small localized angioectasia without bleeding was found in the cecum. Small Internal Hemorrhoids. The exam was otherwise without abnormality. Impression: - Two diminutive polyps at the splenic flexure and in the ascending colon, removed with a cold snare. Resected and retrieved. - A single non-bleeding colonic angioectasia. - Small Internal Hemorrhoids. - The examination was otherwise normal. Recommendation: - Telephone endoscopist for pathology results in 2 weeks. - Repeat colonoscopy in 5 years for surveillance. Procedure Code(s): --- Professional --- 13169, Colonoscopy, flexible; with removal of tumor(s), polyp(s), or other lesion(s) by snare technique Diagnosis Code(s): --- Professional --- R19.4, Change in bowel habit K55.20, Angiodysplasia of colon without hemorrhage K63.5, Polyp of colon CPT copyright 2019 [employer]. All rights reserved. The codes documented in this report are preliminary and upon trace clerk review may be revised to meet current compliance requirements. Charlie Anguiano MD Charlie Anguiano MD 12/30/2020 11:34:21 AM Electronically signed by Charlie Anguiano MD Number of Addenda: 0 Note Initiated On: 12/30/2020 11:09 AM Estimated Blood Loss: Estimated blood loss: none.
[2020-12-30 12:02] VITALS: BP 134/90
== END 2020-12-30 12:07 | disposition home or self-care (01) ==
LOC: M OPP 10:03
PROVIDERS: ATTEND Internal Medicine Gastroenterology
DX: D12.6 Benign neoplasm of colon, unspecified (principal); K55.20 Angiodysplasia of colon without hemorrhage; R19.4 Change in bowel habit; R12 Heartburn; Z79.899 Other long term (current) drug therapy

== ENCOUNTER → 2022-08-03 | Outpatient (CLI) | payer OTHER ==
[~2022-08-03] MED LIST changes: -NS 1,000 ML IV ONE
== END ==
LOC: M WHC 11:12
PROVIDERS: ATTEND Nurse Practitioner Family
DX: Z12.31 Encounter for screening mammogram for malignant neoplasm of breast (principal); R92.8 Other abnormal and inconclusive findings on diagnostic imaging of breast

== ENCOUNTER → 2022-08-03 | Outpatient (REF) | payer OTHER | LOC: M SFHCWAGY 17:37 | PROVIDERS: ATTEND Nurse Practitioner Family | DX: Z12.4 Encounter for screening for malignant neoplasm of cervix (principal) ==

== ENCOUNTER → 2022-08-27 | Outpatient (CLI) | payer OTHER | LOC: M WHC 13:02 | PROVIDERS: ATTEND Nurse Practitioner Family | DX: R92.8 Other abnormal and inconclusive findings on diagnostic imaging of breast (principal) ==

== ENCOUNTER → 2022-10-17 | Outpatient (REF) | payer OTHER | LOC: M SFHCWAGY 17:44 | PROVIDERS: ATTEND Obstetrics & Gynecology | DX: N87.0 Mild cervical dysplasia (principal) ==

== ENCOUNTER → 2023-08-30 | Outpatient (REF) | payer MEDICARE ==
[2023-09-03 13:58] LABS: HPV APTIMA Detected (Not Detected)
== END ==
LOC: M SFHCWAGY 17:13
PROVIDERS: ATTEND Nurse Practitioner Family
DX: Z12.4 Encounter for screening for malignant neoplasm of cervix (principal); R87.810 Cervical high risk human papillomavirus (HPV) DNA test positive; R87.610 Atypical squamous cells of undetermined significance on cytologic smear of cervix (ASC-US); N95.2 Postmenopausal atrophic vaginitis
CPT/HCPCS: 87624; G0123

== ENCOUNTER → 2023-08-30 | Outpatient (CLI) | payer MEDICARE | LOC: M WHC 15:04 | PROVIDERS: ATTEND Nurse Practitioner Family | DX: Z12.31 Encounter for screening mammogram for malignant neoplasm of breast (principal); R92.323 Mammographic fibroglandular density, bilateral breasts ==

== ENCOUNTER → 2023-12-11 | Outpatient (CLI) | payer MEDICARE, OTHER | LOC: M RAD 13:47 | PROVIDERS: ATTEND Internal Medicine | DX: Z12.2 Encounter for screening for malignant neoplasm of respiratory organs (principal); F17.211 Nicotine dependence, cigarettes, in remission; R91.1 Solitary pulmonary nodule ==

== ENCOUNTER → 2024-07-03 | Outpatient (CLI) | payer MEDICARE, OTHER ==
[~2024-07-03] MED LIST changes: +MORP-138 PO; -MORP15TASA PO
[2024-07-03 14:30] LABS: ALBUMIN 4.2 G/DL (3.2-5.2); BILIRUBIN,TOTAL 0.4 MG/DL (0.3-1.2); CALCIUM LEVEL 10.1 MG/DL (8.3-10.6); CREATININE FOR GFR 0.76 MG/DL (0.55-1.30); GLOMERULAR FILTRATION RATE 86.4 (>45); TOTAL PROTEIN 7.6 G/DL (5.7-8.2)
[2024-07-03 14:36] LABS: BASO # 0.1 10^3/uL (0.0-0.2); HEMATOCRIT 48.4 % (36.0-47.0); HEMOGLOBIN 15.3 g/dl (12.0-15.5); LYMPH # 3.6 10^3/uL (1.5-5.0); LYMPH % 30.5 % (24.0-44.0); MEAN CORPUSCULAR HEMOGLOBIN 28.2 pg (27.0-33.0); MEAN CORPUSCULAR HGB CONC 31.6 g/dl (32.0-36.5); MEAN CORPUSCULAR VOLUME 89.3 fl (80.0-96.0); MONO # 0.6 10^3/uL (0.0-0.8); MONO % 5.4 % (2.0-8.0); NEUTROPHILS # 4.4 10^3/uL (1.5-8.5); NEUTROPHILS % 37.1 % (36.0-66.0); PLATELET COUNT, AUTOMATED 408 10^3/uL (150-450); RED BLOOD COUNT 5.42 10^6/uL (4.00-5.40); WHITE BLOOD COUNT 11.8 10^3/uL (4.0-10.0)
[2024-07-03 14:54] LABS: EOS % 25.7 % (0.0-3.0)
== END ==
LOC: M WUC 12:03
PROVIDERS: ATTEND Internal Medicine
DX: R10.9 Unspecified abdominal pain (principal)

== ENCOUNTER → 2024-12-15 | Outpatient (CLI) | payer MEDICARE, OTHER | LOC: M WHC 15:19 | PROVIDERS: ATTEND Physician Assistant | DX: Z12.31 Encounter for screening mammogram for malignant neoplasm of breast (principal); R92.323 Mammographic fibroglandular density, bilateral breasts ==

== ENCOUNTER → 2024-12-15 | Outpatient (REF) | payer MEDICARE ==
[2024-12-18 14:17] LABS: HPV APTIMA Not Detected (Not Detected)
== END ==
LOC: M PLALAB 16:36
PROVIDERS: ATTEND Physician Assistant
DX: R87.610 Atypical squamous cells of undetermined significance on cytologic smear of cervix (ASC-US) (principal); R87.810 Cervical high risk human papillomavirus (HPV) DNA test positive
CPT/HCPCS: 87624; G0123

== ENCOUNTER → 2024-12-16 | Outpatient (CLI) | payer MEDICARE, OTHER | LOC: M RAD 11:27 | PROVIDERS: ATTEND Internal Medicine | DX: F17.211 Nicotine dependence, cigarettes, in remission (principal) ==